=== PATIENT | female | born 1970 | race Caucasian/White ===

== ENCOUNTER 2018-06-09 08:09 | Emergency (ER) | payer OTHER, MEDICAID, SELFPAY ==
[2018-06-09 08:15] VITALS: BP 132/84; PULSE 75; RESP 15; TEMP 36.6; O2SAT 100; BMI 26.6
--- NOTE | 2018-06-09 09:06 | PC.NURSE ---
After meeting with the doctor, patient walked out of the department.
--- NOTE | 2018-06-09 09:11 | PC.NURSE ---
Patient left AMA; Patient left without signing any paperwork.
--- NOTE | 2018-06-09 09:15 | ED_ITS ---
HPI - Neck Pain/Injury General Chief Complaint: Neck Pain/Injury Stated Complaint: 'MY NECK' Time Seen by Provider: 06/09/18 08:13 History of Present Illness HPI Narrative: HPI 47 y/o female smoker w/ a recent history of a left achilles tendon rupture s/p repair 3 months ago presents for evaluation / management of ongoing neck pain, mild bilateral medial nerve paresthesias, and intermittent gradual onset headaches that have been present since starting crutch use post-operatively. Patient reports that she would like to have an MRI and possible surgery to address her ongoing neck pain. Patient reports frustration that she was cleared for a desk job by her surgeon and that this has caused her the possibility of $200 per month from [facility]. 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 Continues to be able to perform job duties, continues to be able to take care of her ADLs, lives alone in fifth wheel trailer. Patient unable to cite an event that led to today's presentation other than being tired of her discomfort. Patient is taking ibuprofen for pain control. Patient denies neck manipulation, trauma, fevers, changes in vision or hearing, calf pain, history of DVT or PE. Patient scratches are appropriately adjusted and they are not impacting her armpits. M/S/F/SocHx notable for: please see HPI; remainder reviewed with patient and in chart. ROS: Negative constitutional, eye, cardiovascular, pulmonary, GI, , MSK, skin , neurologic, psychiatric, endocrine unless noted in the HPI. Exam HR 75, BP 132/84, RR 15, T 97.8 ?F, SaO2 100 % on room air; at 8:15 am. Gen: Pleasant, non-toxic appearing, resting comfortably. HEENT: NC, AT, PEERL, EOMI. Resp: Clear to auscultation bilaterally, normal work of breathing, no accessory muscle usage. Card: Regular rate and rhythm with no murmurs, rubs, or gallops, extremities warm and well perfused. GI: Non-tender to palpation throughout all quadrants, no focal tenderness at McBurney's point, negative Kinsey's sign, non-distended, no rebound or guarding. : No suprapubic tenderness to palpation. Vascular: both calves of equal size and nontender to palpation bilaterally. Patient able comfortably crutch around the room without discernible discomfort. MSK: No visible deformities, strength and tone without visually appreciable deficit. Both hands warm and well perfused with 2+ radial pulses. C-spine without tenderness to palpation, neck with global mild reduction in range of motion in all modalities secondary to mild discomfort. Skin: Normal color with no visible lesions. Neuro: Gen AO x 3, no facial asymmetry, no gaze preference, no slurring of speech. CN II-III: pupils equal and reactive (3->2mm bilaterally); III, IV, : EOMI, V1-V3: sensation to touch bilaterally intact; VII: no facial asymmetry ( frown / smile); VIII: no nystagmus; X: phonation intact, uvula midline; XI: trapezius 5/5 bilaterally, XII: tongue midline. Cerebellar: no pronator drift, [id number] testing without dysmetria bilaterally, heel to levy without dysmetria bilaterally. Sensation intact to touch on all fingers, 5/5 mass spec strength bilaterally. Psych: mildly anxious, intermittently tearful. MDM Previous chart, nursing note, labs, imaging, and vitals reviewed. A/P: 47 y/o female smoker w/ a recent history of a left achilles tendon rupture s/p repair 3 months ago presents for evaluation / management of ongoing neck pain, mild bilateral medial nerve paresthesias, and intermittent gradual onset headaches that have been present since starting crutch use post-operatively. Physical exam is notable for a tearful female that is neurovascularly intact, has no identifiable high-risk features with respect to her headache, and remains able comfortably complete her ADLs as well as to perform work duties. The patient may benefit from a change of scope of work due to her need to use crutches. Social work consultation was offered and the patient declined and crutched from the department eloping prior to completion of care. The patient was alert, oriented, had clear insight, and had unequivocal capacity prior to eloping from the emergency department. Suspect the patient's intermittent posterior headaches are tension type headaches given the provocation with crutch use. Patient has mild gradual onset bilateral paresthesias predominantly over median nerve distribution, this is likely secondary to her crutch use. Impression: headache, median nerve paresthesias, AMA, asymptomatic hypertension (please reference below for remainder of encounter information) Related Data Allergies Allergy/AdvReac Type Severity Reaction Status Date / Time No Known Allergies Allergy Uncoded 06/09/18 08:15 [facility] Social History Smoking Status: Current every day smoker Exam Initial Vital Signs Initial Vital Signs: Vital Signs Temperature 97.8 F 06/09/18 08:15 Pulse Rate 75 06/09/18 08:15 Respiratory Rate 15 06/09/18 08:15 Blood Pressure 132/84 H 06/09/18 08:15 Pulse Oximetry 100 06/09/18 08:15 Course Vital Signs - 8 hr 06/09/18 08:15 Temperature 97.8 F Pulse Rate 75 Respiratory Rate 15 Blood Pressure 132/84 H Pulse Oximetry 100 Discharge Plan Departure Patient Disposition: Left Against Medical Advice Discharge Date/Time: 06/09/18 08:45 Interventions: ED Discharge Assessment Last Done: 06/09/18 09:11 Stand Alone Forms: Against Medical Advice
== END 2018-06-09 08:46 | disposition left against medical advice (07) ==
PROVIDERS: Emergency Provider Emergency Medicine
DX: R51 Headache (principal); I10 Essential (primary) hypertension
CPT/HCPCS: 99282

== ENCOUNTER 2018-12-23 15:58 | Emergency (ER) | payer SELFPAY ==
[2018-12-23 15:58] VITALS: BP 130/85; PULSE 84; RESP 18; TEMP 35.9; O2SAT 96; BMI 27.4
--- NOTE | 2018-12-23 16:22 | ED_ITS ---
HPI - Alcohol General Chief Complaint: Toxicology Problem Stated Complaint: ETOH Time Seen by Provider: 12/23/18 16:22 Source: patient and EMS Mode of arrival: EMS Limitations: no limitations History of Present Illness HPI narrative: Patient is a 48-year-old female brought in by EMS after they were called by an unknown individual because the patient was at [address] [facility]. Unsure as to why she was there. The patient did state that she drank alcohol and smoked some marijuana. She stated that she just wanted to go to the beach. Apparently she was crawling at the beach. She does have chronic left lower extremity pain secondary to which she states was a Achilles tendon injury. She does have a walking boot and also a scooter. Patient denied suicidal homicidal ideation. She does live with her sister who is not currently in town. She states that she felt lonely at home and that is why she went to the beach. Related Data Allergies Allergy/AdvReac Type Severity Reaction Status Date / Time No Known Allergies Allergy Uncoded 06/09/18 08:15 Review of Systems Constitutional Denies fever(s) and Denies headache(s) ENT Ears, Nose, Mouth, and Throat: Denies vertigo and Denies headache(s) Cardiovascular Denies chest pain and Denies dyspnea Respiratory Denies dyspnea Gastrointestinal Gastrointestinal: Denies abdominal pain Musculoskeletal Comments: Left lower extremity pain Integumentary/Breasts Denies rash Neurologic Denies confusion, Denies vertigo and Denies headache(s) Psychiatric Denies confusion, Reports depression, Denies irritability, Denies homicidal ideation and Denies suicidal ideation Hematologic/Lymphatic Comments: Not on anticoagulation [facility] Medical History Chronic pain of left lower extremity (Acute) Social History Smoking Status: Current every day smoker Social History Smoking Status: Current every day smoker Exam Initial Vital Signs Initial Vital Signs: Vital Signs Temperature 96.6 F L 12/23/18 15:58 Pulse Rate 84 12/23/18 15:58 Respiratory Rate 18 12/23/18 15:58 Blood Pressure 130/85 12/23/18 15:58 Pulse Oximetry 96 12/23/18 15:58 Const General: cooperative, comfortable, well developed, well groomed and No acute distress Orientation: alert, awake, oriented x3, oriented to person, oriented to place, oriented to time and not confused Limitations: mental status not altered HENND Head: normal to inspection and normocephalic Resp Effort & Inspection: normal respiratory effort Auscultation: clear to auscultation bilaterally Cardio Rate: regular rate Rhythm: regular rhythm GI Inspection: non-distended Palpation: soft, No firm and No tender Skin Lesions: no lesions Rashes: no rashes Neuro General: alert, awake and oriented x3 Cognition: normal cognition Speech: speech normal Other: Patient with tenderness to palpation left lower extremity. She states this is not new. Extrem Other: Limited range of motion left ankle secondary to pain Psych Appearance: grossly normal and disheveled Mood: congruent mood and not anxious Affect: sad Attitude: cooperative Thought Process: normal Thought Content: normal, no homicidality and suicidality Course Vital Signs - 8 hr 12/23/18 15:58 Temperature 96.6 F L Pulse Rate 84 Respiratory Rate 18 Blood Pressure 130/85 Pulse Oximetry 96 MDM - Alcohol MDM Narrative Medical decision making narrative: Patient did admit to drinking alcohol and smoking marijuana. She was alert and oriented x3 and in my opinion had the capacity to make decisions. She has left lower extremity pain which is chronic. There is no signs of infection. She was able to get up and use the restroom without assistance. Patient denied SI or HI. There is no signs of trauma. Was observing the patient here in the emergency department when she stated that she wanted to go home. I informed her because she stated that she was drinking that she needed to call someone to come and pick her up. She states that there was no one to come pick her up. We offered to call her cab which she did not want. I do not think the patient needs involuntarily admitted because she denied any SI or HI. I did inform patient that it would be best if somebody came and picked her up. Informed her that she could not drive because of her alcohol use. The patient eloped. Discharge Plan Departure Patient Disposition: Left Against Medical Advice Clinical Impression: Alcoholic intoxication, Left leg pain Stand Alone Forms: Against Medical Advice
--- NOTE | 2018-12-23 17:44 | PC.NURSE ---
Pt yelling in room 13 bathroom. I responded. Pt screaming at me F*CK YOU! YOU CAN'T KEEP ME HERE! I'M NOT SUICIDAL. I asked her to cam down, she screamed NO. I told patient that she could call a friend to pick her up or we would call her a cab. She screamed NO - Call the police!!!. Police called to assist patient. Pt went back to her stretcher. I went to discuss w/ Dr. Bales and pt eloped out ambulance bay doors. Dr. Bales denied need to have PD pick her up and return her. Police then came to ED requesting fit for senior care as pt had felony warrant and was being arrested. Dr. Bales evaluating.
--- NOTE | 2018-12-23 18:11 | PC.NURSE ---
Pt in police custody. Pt cleared fit for retirement. Pt refused to sign d/c instructions.
== END 2018-12-23 18:14 | disposition left against medical advice (07) ==
LOC: ED 18:18
PROVIDERS: Emergency Provider Emergency Medicine
DX: F10.929 Alcohol use, unspecified with intoxication, unspecified (principal); M79.605 Pain in left leg
CPT/HCPCS: 99282

== ENCOUNTER 2020-10-23 21:48 | Emergency (ER) | payer OTHER, MEDICAID, SELFPAY ==
[2020-10-23 22:00] VITALS: BP 158/97; PULSE 78; RESP 26; TEMP 36.7; O2SAT 97
--- NOTE | 2020-10-23 22:11 | ED_ITS ---
HPI - Skin/Abscess/Foreign Bdy General Chief complaint: Skin/Abscess/Foreign Body Stated complaint: states thistles in hand Time Seen by Provider: 10/23/20 22:11 Source: patient Mode of arrival: Ambulatory Limitations: no limitations History of Present Illness HPI narrative: 50-year-old female here for which she states are Thistles in her hands and arms and in her head. She states that several weeks ago she was h andling a plan that had thistles and she states that they got into her blood stream and now they are coming out through her arms and her head. Related Data Previous Rx's Medication Instructions Recorded handicap placard #1 ea 04/12/19 left ankle brace #1 ea 06/01/19 Allergies Allergy/AdvReac Type Severity Reaction Status Date / Time No Known Allergies Allergy Uncoded 10/23/20 22:04 Review of Systems Constitutional Constitutional: Denies fever(s) Musculoskeletal Musculoskeletal: Denies myalgias Integumentary/Breasts Comments: Thistle coming out of her skin Allergic/Immunologic Allergic/Immunologic: Denies urticaria Patient History Medical History (Updated 10/23/20 @ 22:12 by Omer Bales DO) Chronic pain of left lower extremity Social History Smoking Status: Current every day smoker Tobacco: How many years used: 30 quit status: not considering quitting second hand exposure: No alcohol intake: current (Beer or shot, 2-3x/week) substance use type: marijuana (smoke,edibles. daily) Smoking Status: Current every day smoker tobacco type: cigarettes Substance Use Type: marijuana Exam Initial Vital Signs Initial Vital Signs: Vital Signs Temperature 98.1 F 10/23/20 22:00 Pulse Rate 78 10/23/20 22:00 Respiratory Rate 26 H 10/23/20 22:00 Blood Pressure 158/97 H 10/23/20 22:00 Pulse Oximetry 97 10/23/20 22:00 Const General: cooperative Skin Rashes: no rashes Other: no thistles noted on his skin or her hair Neuro General: patient alert Course Vital Signs Vital signs: Vital Signs - 8 hr 10/23/20 22:00 Temperature 98.1 F Pulse Rate 78 Respiratory Rate 26 H Blood Pressure 158/97 H Pulse Oximetry 97 MDM - Skin/Abscess/Foreign Bdy MDM Narrative Medical decision making narrative: She does have several different healing wounds throughout her bony however there seems to be no indication that there are bugs or pieces of plants coming from her skin her scalp. Informed the patient that nothing further needs to be done in the emergency department. Discharge Plan Departure Patient Disposition: Home Clinical Impression: Physically well but worried Activity Restrictions/Additional Instructions: Return to the emergency department for any new or worsening symptoms Prescriptions: No Action (DME) left ankle brace Qty: 1 RF: 0 (DME) handicap placard Qty: 1 RF: 0 Referrals: Matt Avila ARNP [Primary Care Provider] -
--- NOTE | 2020-10-23 22:14 | PC.NURSE ---
small red bumps x2 on forehead. 1-2 small red bumps on hands. Hands are not reddened or swollen.
== END 2020-10-23 22:17 | disposition home or self-care (01) ==
PROVIDERS: Emergency Provider Emergency Medicine; PCP Nurse Practitioner Family
DX: L08.9 Local infection of the skin and subcutaneous tissue, unspecified (principal)
CPT/HCPCS: 99281

== ENCOUNTER 2020-12-07 14:25 | Emergency (ER) | payer OTHER, MEDICAID, SELFPAY ==
[2020-12-07 15:02] VITALS: BP 147/88; PULSE 76; RESP 16; TEMP 36.5; O2SAT 99; BMI 22.3
[2020-12-07 16:13] VITALS: BP 146/84; PULSE 79; RESP 20; TEMP 36.4; O2SAT 99
--- NOTE | 2020-12-07 17:14 | PC.NURSE ---
patient reports having Little balls in her hair and states you cant see them only feel them. She says they pull on her hair and she can not get rid of them. Patient hair is unwashed and her general appearance is disheveled. No little balls were palpated or visualized in her hair. The patient directed me to the spots and stated do you feel that?. No balls felt
--- NOTE | 2020-12-07 17:32 | ED_ITS ---
HPI - Skin/Abscess/Foreign Bdy General Chief complaint: Skin/Abscess/Foreign Body Stated complaint: Poss parasite infection Time Seen by Provider: 12/07/20 17:32 Source: patient Mode of arrival: Ambulatory Limitations: no limitations History of Present Illness HPI narrative: The patient is a 50-year-old female who presents with parasites all over her body. She states that they are microscopic and neck cannot be s een. She says she had ?devils thumb a while ago and thinks she treated that but now thinks that she has underlying parasites. She denies any drug use. She denies any itching fever or chills. Related Data Previous Rx's Medication Instructions Recorded handicap placard #1 ea 04/12/19 left ankle brace #1 ea 06/01/19 Allergies Allergy/AdvReac Type Severity Reaction Status Date / Time No Known Allergies Allergy Uncoded 10/23/20 22:04 Review of Systems Review of Systems Narrative: GENERAL: Denies chills,fever HEENT: Denies throat pain RESPIRATORY: Denies dyspnea, cough, wheezing CARDIOVASCULAR: Denies chest pain, palpitations GASTROINTESTINAL: Denies nausea, vomiting MUSCULOSKELETAL: Denies extremity pain, injury SKIN: See HPI NEUROLOGIC: Denies weakness, dizziness, headache, numbness 8 point review of systems is negative except for those stated above and HPI Patient History Medical History Chronic pain of left lower extremity Social History Smoking Status: Current every day smoker Tobacco: How many years used: 30 quit status: not considering quitting second hand exposure: No alcohol intake: current (Beer or shot, 2-3x/week) substance use type: marijuana (smoke,edibles. daily) Smoking Status: Current every day smoker tobacco type: cigarettes Substance Use Type: marijuana Exam Initial Vital Signs Initial Vital Signs: Vital Signs Temperature 97.7 F 12/07/20 15:02 Pulse Rate 76 12/07/20 15:02 Respiratory Rate 16 12/07/20 15:02 Blood Pressure 147/88 H 12/07/20 15:02 Pulse Oximetry 99 12/07/20 15:02 GENERAL: Well-appearing, well-nourished and in no acute distress. CARDIOVASCULAR: peripheral pulses in tact, cap refill <2 sec RESPIRATORY: No respiratory distress, speaks in full sentences without difficulty ABDOMEN: Soft, nontender, no guarding or rebound EXTREMITIES: Normal range of motion, no clubbing or edema. Neurovascularly intact NEUROLOGICAL: Cranial nerves II through XII grossly intact. Normal gait and speech. SKIN: No rash no erythema no abscess, no burrowing holes Course Vital Signs Vital signs: Vital Signs - 8 hr 12/07/20 15:02 12/07/20 16:13 12/07/20 17:45 Temperature 97.7 F 97.6 F Pulse Rate 76 79 75 Respiratory Rate 16 20 14 Blood Pressure 147/88 H 146/84 H 118/87 Pulse Oximetry 99 99 75 L Discharge Plan Departure Patient Disposition: Home Clinical Impression: Feared complaint without diagnosis Instructions: DI for Wound Infection Activity Restrictions/Additional Instructions: *You have been diagnosed with at this time no parasite is found *What to do: There is no testing available for parasite. If you are experiencing itching I recommend Benadryl *Continue to take medications as directed Benadryl 25 mg every 6 hours if needed for itching *Follow up with your primary care provider in 2-3 days *Return to ER if you should have any new, worsening or concerning symptoms Prescriptions: No Action (DME) left ankle brace Qty: 1 RF: 0 (DME) handicap placard Qty: 1 RF: 0 Referrals: Matt Avila ARNP [Primary Care Provider] -
[2020-12-07 17:45] VITALS: BP 118/87; PULSE 75; RESP 14; O2SAT 75
== END 2020-12-07 17:46 | disposition home or self-care (01) ==
PROVIDERS: Emergency Provider Emergency Medicine; PCP Nurse Practitioner Family
DX: R21 Rash and other nonspecific skin eruption (principal)
CPT/HCPCS: 99281

== ENCOUNTER 2020-12-23 11:46 | Emergency (ER) | payer OTHER, MEDICAID, SELFPAY ==
[2020-12-23 12:30] VITALS: BP 137/93; PULSE 71; RESP 18; TEMP 37; O2SAT 98; BMI 24.0
--- NOTE | 2020-12-23 12:49 | PC.NURSE ---
one attempt to room patient, can not find patient in any of the three waiting areas
--- NOTE | 2020-12-23 13:11 | PC.NURSE ---
1310 unable to locate pt in [place] or surrounding areas
== END 2020-12-23 13:21 | disposition left against medical advice (07) ==
PROVIDERS: Emergency Provider Emergency Medicine; PCP Nurse Practitioner Family
CPT/HCPCS: 99281

== ENCOUNTER 2020-12-28 09:32 | Emergency (ER) | payer OTHER, MEDICAID, SELFPAY ==
[2020-12-28 09:41] VITALS: BP 136/84; PULSE 83; RESP 18; TEMP 36.8; O2SAT 100; BMI 24.0
--- NOTE | 2020-12-28 09:47 | ED.GENADULT ---
HPI - General Adult General Chief complaint: Extremity Injury, Upper Stated complaint: both shoulders/elbows/right foot pain Time Seen by Provider: 12/28/20 09:37 Source: patient Mode of arrival: Wheelchair Limitations: no limitations History of Present Illness HPI narrative: Patient is a 50-year-old female who is sent over from the walk-in clinic for evaluation of multiple complaints to include pain in both of her shoulders, her elbows, right foot, parasites or other bugs coming from her scan another complaints. Patient states that all of the symptoms have been there for quite some time. She states she lives in a trailer. Has not seen her primary doctor in a couple years. Denies use of drugs but does state she drinks alcohol. She states that she has been cleaning somebody's house and has been very dirty and she is concerned that she may have contracted something from this. She has not tried anything for symptoms prior to arrival. She has not contacted her primary provider. Related Data Previous Rx's Medication Instructions Recorded handicap placard #1 ea 04/12/19 left ankle brace #1 ea 06/01/19 Allergies Allergy/AdvReac Type Severity Reaction Status Date / Time No Known Allergies Allergy Uncoded 10/23/20 22:04 Review of Systems Constitutional Constitutional: Reports fatigue, Denies fever(s) and Reports malaise Cardiovascular Cardiovascular: Denies chest pain and Denies dyspnea Respiratory Respiratory: Denies dyspnea Gastrointestinal Gastrointestinal: Denies vomiting Musculoskeletal Musculoskeletal: Reports arthralgias, Reports back pain and Reports myalgias Integumentary/Breasts Comments: Feeling of bugs coming from her skin Neurologic Neurologic: Reports behavioral changes Psychiatric Psychiatric: Reports behavioral changes Endocrine Endocrine: Reports fatigue Allergic/Immunologic Allergic/Immunologic: Denies urticaria Patient History Medical History Alcohol abuse Chronic pain of left lower extremity Social History Smoking Status: Current every day smoker Tobacco: How many years used: 30 quit status: not considering quitting second hand exposure: No alcohol intake: current (Beer or shot, 2-3x/week) substance use type: marijuana (smoke,edibles. daily) Smoking Status: Current every day smoker tobacco type: cigarettes alcohol intake frequency: 0-2 drinks per day Substance Use Type: marijuana Exam Initial Vital Signs Initial Vital Signs: Vital Signs Temperature 98.3 F 12/28/20 09:41 Pulse Rate 83 12/28/20 09:41 Respiratory Rate 18 12/28/20 09:41 Blood Pressure 136/84 12/28/20 09:41 Pulse Oximetry 100 12/28/20 09:41 Const General: No cooperative, anxious and disheveled Limitations: mental status not altered HENMT Head: other (Patient does have hair loss to the back of her head) Resp Effort & Inspection: normal respiratory effort Auscultation: clear to auscultation bilaterally Cardio Rate: regular rate Rhythm: regular rhythm GI Inspection: non-distended Palpation: soft Skin Other: Multiple well-healed wounds mostly located on hands and forearms Neuro General: patient alert and patient awake Speech: speech normal Gait: normal gait Extrem General: capillary refill normal Psych Appearance: disheveled Course Vital Signs Vital signs: Vital Signs - 8 hr 12/28/20 09:41 Temperature 98.3 F Pulse Rate 83 Respiratory Rate 18 Blood Pressure 136/84 Pulse Oximetry 100 Medical Decision Making [facility] Narrative Medical decision making narrative: Patient is disheveled and has multiple complaints. She has not seen her primary doctor. She is concerned about parasites her other bugs coming out of her skin which there does not appear to be any of that here in the emergency department today. I tried to provide her reassurance for this. She asked for a ?skin test ?be sure however I informed her that there was nothing for us to test as there were no signs of any infestation/infections. She was concerned about skin infections in her lower extremities because she has had cellulitis in the past in her exam today is not consistent with that. She does have thinning hair especially on the back of her head. She states she has not been pulling on her hair. She denied the use of drugs but does state that she has been drinking alcohol. I informed her that we could check some basic labs here today to be sure that her electrolytes are normal however informed her that she most likely will need to follow-up with her primary provider. She attest why we could not do the things at her primary provider could do here in the emergency department. I informed her that unfortunately we were not set up to do things like consultations or other specialist referrals if she were to need something like this. She then became extremely agitated and stated that she just wanted to leave. We tried to convince her to stay however she changed of her gown and walked out of the emergency department without her discharge paperwork. Discharge Plan Departure Patient Disposition: Home Clinical Impression: Arthritis, Malaise Instructions: DI for Joint Pain Activity Restrictions/Additional Instructions: Your physical exam today is not consistent with any emergent condition. I recommend that you abstain from the use of drugs or alcohol as this could potentially make her symptoms worse. I also recommend that you contact your primary provider for a follow-up. Their phone numbers [phone]. Prescriptions: No Action (DME) left ankle brace Qty: 1 RF: 0 (DME) handicap placard Qty: 1 RF: 0 Referrals: Matt Avila ARNP [Primary Care Provider] -
--- NOTE | 2020-12-28 09:52 | PC.NURSE ---
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 I need you guys to crape my skin and test it under a microscope Patient is concerned things are crawling in her skin, reports joint pain in elbows, neck and back aching, hair loss. Patient has mild swelling noted to lateral aspect of right foot with +1 edema noted to lower leg. CMS intact. Upon examination of patients back she was tender to palpation of trapezius bilaterally. Patient does have significant hair loss noted to back of scalp. Provider offered to do blood work patient refused I am leaving no one will help me Attempted to explain to patient benefits of lab work, explained in depth parasite testing and skin testing is not something we can do from ER.
--- NOTE | 2021-01-03 13:50 | ED.PSYCH ---
HPI - Psych General Chief Complaint: Extremity Injury, Upper Stated Complaint: both shoulders/elbows/right foot pain Time Seen by Provider: 12/28/20 09:37 Source: patient and EMS Mode of arrival: EMS Limitations: no limitations History of Present Illness HPI Narrative: 50-year-old female daily smoker without chronic medical problems presents by EMS for evaluation of parasites crawling around in the skin of her scalp and feet. She states it has been happening for many weeks if not months. She states she has been seen for this complaint previously without any significant findings. She denies that she takes any alcohol or street drugs. She denies any underlying and chronic diagnoses that would require medications. She has had no recent head injuries or trauma. She denies any blurred vision or trouble speech. She denies chest pain or shortness of breath. She does admit to all over joint aches and pains. She denies suicidal or homicidal ideation. She lives at home and states she is able to eat, drink and bathe herself. MD complaint: other Onset (ago): week(s) Related Data Previous Rx's Medication Instructions Recorded handicap placard #1 ea 04/12/19 left ankle brace #1 ea 06/01/19 Allergies Allergy/AdvReac Type Severity Reaction Status Date / Time No Known Allergies Allergy Uncoded 01/03/21 13:55 Review of Systems Neurologic Neurologic: Reports behavioral changes Psychiatric Psychiatric: Reports behavioral changes Patient History Medical History Alcohol abuse Chronic pain of left lower extremity Social History Smoking Status: Current every day smoker Tobacco: How many years used: 30 quit status: not considering quitting second hand exposure: No alcohol intake: current (Beer or shot, 2-3x/week) substance use type: marijuana (smoke,edibles. daily) Smoking Status: Current every day smoker tobacco type: cigarettes alcohol intake frequency: 0-2 drinks per day Substance Use Type: marijuana Exam Initial Vital Signs Initial Vital Signs: Vital Signs Temperature 98.3 F 12/28/20 09:41 Pulse Rate 83 12/28/20 09:41 Respiratory Rate 18 12/28/20 09:41 Blood Pressure 136/84 12/28/20 09:41 Pulse Oximetry 100 12/28/20 09:41 Course Orders Ordered: ED Orders 01/03/21 13:52 Complete Blood Count AUTO DIFF Stat Comprehensive Metabolic Panel Stat Ethanol (ETOH) Stat Thyroid Stimulating Hormone Stat Urine Drug Screen, Rapid Stat 01/03/21 13:53 CT head/brain wo con Stat Discharge Plan Departure Patient Disposition: Home Clinical Impression: Arthritis, Malaise Instructions: DI for Joint Pain Activity Restrictions/Additional Instructions: Your physical exam today is not consistent with any emergent condition. I recommend that you abstain from the use of drugs or alcohol as this could potentially make her symptoms worse. I also recommend that you contact your primary provider for a follow-up. Their phone numbers [phone]. Prescriptions: No Action (DME) left ankle brace Qty: 1 RF: 0 (DME) handicap placard Qty: 1 RF: 0 Referrals: Matt Avila ARNP [Primary Care Provider] -
--- NOTE | 2021-01-03 13:53 | DI.CT.S_ITS ---
PROCEDURE: CT HEAD/BRAIN WO CON INDICATIONS: visual hallucinations TECHNIQUE: Noncontrast 4.5 mm thick angled axial sections acquired from the foramen magnum to the vertex, with coronal and sagittal reformats. For radiation dose reduction, the following was used: automated exposure control, adjustment of mA and/or kV according to patient size. COMPARISON: [facility], CT, CT HEAD WITHOUT CONTRAST, 01/29/2018, 23:14. [facility], CT, HEAD WITHOUT CONTRAST, 09/02/2009, 19:55. FINDINGS: Image quality: Excellent. CSF spaces: Basal cisterns are patent. No extra-axial fluid collections. Ventricles are normal in size and shape. Brain: No midline shift. No intracranial masses or hemorrhage. Aleman-white matter interface is normal. Skull and face: Calvarium and visualized facial bones are intact, without suspicious lesions. Sinuses: Mucosal thickening is seen in the bilateral ethmoid air cells and nasal cavity is. The remaining visualized paranasal sinuses and the mastoid air cells are clear. IMPRESSION: No acute intracranial abnormality. Dictated by: Tigre Trevizo M.D. on 01/03/2021 at 14:11 Approved by: Tigre Trevizo M.D. on 01/03/2021 at 14:13
== END 2020-12-28 10:00 | disposition home or self-care (01) ==
PROVIDERS: Emergency Provider Emergency Medicine; PCP Nurse Practitioner Family
DX: M19.90 Unspecified osteoarthritis, unspecified site (principal); M53.81 Other specified dorsopathies, occipito-atlanto-axial region; M25.512 Pain in left shoulder; M25.511 Pain in right shoulder; M25.522 Pain in left elbow; M25.521 Pain in right elbow; M79.671 Pain in right foot; R53.83 Other fatigue; M54.9 Dorsalgia, unspecified
CPT/HCPCS: 99281

== ENCOUNTER 2021-01-03 13:48 | Emergency (ER) | payer OTHER, MEDICAID, SELFPAY ==
[2021-01-03 13:51] VITALS: BP 165/116; PULSE 70; RESP 20; TEMP 36.6; O2SAT 98; BMI 24.0
--- NOTE | 2021-01-03 14:03 | ED.SKABFB ---
HPI - Skin/Abscess/Foreign Bdy General Chief complaint: Skin/Abscess/Foreign Body Stated complaint: bugs all over body Time Seen by Provider: 01/03/21 13:50 Source: patient Mode of arrival: EMS Limitations: no limitations History of Present Illness HPI narrative: 50-year-old female daily smoker without chronic medical problems presents by EMS for evaluation of parasites crawling around in the skin of her scalp and feet. She states it has been happening for many weeks if not months. She states she has been seen for this complaint previously without any significant findings. She denies that she takes any alcohol or street drugs. She denies any underlying and chronic diagnoses that would require medications. She has had no recent head injuries or trauma. She denies any blurred vision or trouble speech. She denies chest pain or shortness of breath. She does admit to all over joint aches and pains. She denies suicidal or homicidal ideation. She lives at home and states she is able to eat, drink and bathe herself. MD complaint: other Onset (ago): week(s) Tetanus up to date: unsure Location: generalized Severity: mild Quality: pruritic Relieving factors: none Exacerbating factors: none Context: none Associated symptoms: itching Related Data Previous Rx's Medication Instructions Recorded handicap placard #1 ea 04/12/19 left ankle brace #1 ea 06/01/19 permethrin 1 applic TOPICAL Q14D #60 g 01/03/21 Allergies Allergy/AdvReac Type Severity Reaction Status Date / Time No Known Allergies Allergy Uncoded 01/03/21 13:55 Review of Systems Constitutional Constitutional: Denies chills, Denies fatigue, Denies fever(s), Denies frequent falls, Denies lethargy and Denies weakness Eyes Eyes: Denies change in vision, Denies eye discharge, Denies irritation and Denies loss of vision ENT Ears, Nose, Mouth, and Throat: Denies change in voice, Denies dizziness, Denies neck pain, Denies sore throat and Denies throat swelling Cardiovascular Cardiovascular: Denies chest pain, Denies irregular heart rhythm, Denies lightheadedness, Denies palpitations, Denies dyspnea, Denies dyspnea on exertion and Denies orthopnea Respiratory Respiratory: Denies cough, Denies dyspnea, Denies dyspnea on exertion and Denies wheezing Gastrointestinal Gastrointestinal: Denies abdominal pain, Denies change in bowel habits, Denies diarrhea, Denies nausea and Denies vomiting Musculoskeletal Musculoskeletal: Denies neck pain and Denies numbness Integumentary/Breasts Skin/Breast: Reports pruritus, Reports lesions, Denies erythema, Denies rash and Denies wounds Neurologic Neurologic: Denies behavioral changes, Denies confusion, Denies dizziness, Denies frequent falls, Denies loss of vision, Denies numbness and Denies weakness Psychiatric Psychiatric: Denies anxiety, Denies behavioral changes, Denies confusion, Denies depression, Denies homicidal ideation and Denies suicidal ideation Endocrine Endocrine: Denies fatigue, Denies flushing and Denies palpitations Hematologic/Lymphatic Hematologic/Lymphatic: Denies easy bruising Allergic/Immunologic Allergic/Immunologic: Denies urticaria, Denies throat swelling and Denies wheezing Patient History Medical History Alcohol abuse Chronic pain of left lower extremity Social History Smoking Status: Current every day smoker Tobacco: How many years used: 30 quit status: not considering quitting second hand exposure: No alcohol intake: current (Beer or shot, 2-3x/week) substance use type: marijuana (smoke,edibles. daily) Smoking Status: Current every day smoker tobacco type: cigarettes alcohol intake frequency: 0-2 drinks per day Substance Use Type: marijuana Exam Narrative Exam Narrative: GENERAL: [50] year old patient appears stated age. Well-nourished, well-developed patient, in mild distress. A bit disheveled, alert and oriented. GCS 15 HEAD: Atraumatic. Normocephalic. Mildly erythematous, scaly skin just below her hairline on occiput, no evidence of abscess, cellulitis or parasites EYES: Pupils equal round and reactive. Extraocular motions intact. No scleral icterus. No injection or drainage. ENT: Nose without bleeding, purulent drainage. Throat without erythema, tonsillar hypertrophy or exudate. Airway patent. NECK: Trachea midline. Non tender CARDIOVASCULAR: Regular rate and rhythm without murmurs, gallops, or rubs. RESPIRATORY: Clear to auscultation. Breath sounds equal bilaterally. No wheezes, rales, or rhonchi. GASTROINTESTINAL: Abdomen soft, non-tender, nondistended. EXTREMITIES: No edema or joint tenderness. BACK: Nontender without deformity or crepitance. No flank tenderness. NEURO: AOx3. SKIN: No rash or erythema of visible areas Initial Vital Signs Initial Vital Signs: Vital Signs Temperature 97.8 F 01/03/21 13:51 Pulse Rate 70 01/03/21 13:51 Respiratory Rate 20 01/03/21 13:51 Blood Pressure 165/116 H 01/03/21 13:51 Pulse Oximetry 98 01/03/21 13:51 Course Orders Ordered: ED Orders 01/03/21 14:27 Complete Blood Count AUTO DIFF Stat Comprehensive Metabolic Panel Stat Ethanol (ETOH) Stat Thyroid Stimulating Hormone Stat 01/03/21 14:42 Urine Drug Screen, Rapid Stat Vital Signs Vital signs: Vital Signs - 8 hr 01/03/21 13:51 01/03/21 14:25 Temperature 97.8 F Pulse Rate 70 84 Respiratory Rate 20 15 Blood Pressure 165/116 H 148/94 H Pulse Oximetry 98 MDM - Skin/Abscess/Foreign Bdy Lab Data Result diagrams: 01/03/21 14:27 01/03/21 14:27 Labs: Lab Results 01/03/21 01/03/21 01/03/21 Range/Units 14:27 14:27 14:27 WBC 5.6 (4.5-11.0) X10^3/uL RBC 4.72 (4.0-5.2) X10^6/uL Hgb 12.8 (12.0-16.0) g/dL Hct 39.2 (36-46) % MCV 83.1 (80-100) fL MCH 27.1 (26-34) PG MCHC 32.6 (30-36) % RDW 14.2 (11.6-14.8) % Plt Count 372 (150-400) X10^3/uL Neut % (Auto) 61.8 (50-75) % Lymph % (Auto) 28.7 (25-40) % [place] % (Auto) 8.2 (3-14) % Eos % (Auto) 0.8 L (2-4) % Baso % (Auto) 0.5 (0-2) % Neut # (Auto) 3500 (3022-0755) /uL Lymph # (Auto) 1600 (9779-1539) /uL [place] # (Auto) 500 (0-900) /uL Eos # (Auto) 0 (0-450) /uL Baso # (Auto) 0 (0-100) /uL Sodium 142 (137-145) mmol/L Potassium 4.2 (3.4-5.1) mmol/L Chloride 104 (98-107) mmol/L Carbon Dioxide 30 (22-32) mmol/L BUN 15 (7-17) mg/dL Creatinine 0.60 (0.52-1.04) mg/dL Estimated GFR > 60.0 (>60) mL/min BUN/Creatinine Ratio 25.0 H (6-22) Glucose 81 (70-100) mg/dL Calcium 9.1 (8.4-10.2) mg/dL Total Bilirubin 0.3 (0.2-1.3) mg/dL AST 37 H (14-36) IU/L ALT 28 (<35) IU/L Alkaline Phosphatase 64 (38-126) U/L Total Protein 7.7 (6.3-8.2) g/dL Albumin 4.4 (3.5-5.0) g/dL Globulin 3.3 (1.7-4.1) g/dL Albumin/Globulin Ratio 1.3 (1.0-2.8) TSH 1.81 (0.47-4.68) uIU/mL U Opiates 300ng/mL cut (Negative) Ur Oxycodone Screen (Negative) Urine Methadone Screen (Negative) Ur Barbiturates Screen (Negative) U Tricyclic Antidepress (Negative) Ur Phencyclidine Scrn (Negative) Ur Amphetamines Screen (Negative) U Methamphetamines Scrn (Negative) Ur MDMA Scrn (Ecstasy) (Negative) U Benzodiazepines Scrn (Negative) Urine Cocaine Screen (Negative) U Marijuana (THC) Screen (Negative) Ethyl Alcohol 100 H ( - 10) mg/dL 01/03/21 Range/Units 14:54 WBC (4.5-11.0) X10^3/uL RBC (4.0-5.2) X10^6/uL Hgb (12.0-16.0) g/dL Hct (36-46) % MCV (80-100) fL MCH (26-34) PG MCHC (30-36) % RDW (11.6-14.8) % Plt Count (150-400) X10^3/uL Neut % (Auto) (50-75) % Lymph % (Auto) (25-40) % [place] % (Auto) (3-14) % Eos % (Auto) (2-4) % Baso % (Auto) (0-2) % Neut # (Auto) (8519-1388) /uL Lymph # (Auto) (8329-1575) /uL [place] # (Auto) (0-900) /uL Eos # (Auto) (0-450) /uL Baso # (Auto) (0-100) /uL Sodium (137-145) mmol/L Potassium (3.4-5.1) mmol/L Chloride (98-107) mmol/L Carbon Dioxide (22-32) mmol/L BUN (7-17) mg/dL Creatinine (0.52-1.04) mg/dL Estimated GFR (>60) mL/min BUN/Creatinine Ratio (6-22) Glucose (70-100) mg/dL Calcium (8.4-10.2) mg/dL Total Bilirubin (0.2-1.3) mg/dL AST (14-36) IU/L ALT (<35) IU/L Alkaline Phosphatase (38-126) U/L Total Protein (6.3-8.2) g/dL Albumin (3.5-5.0) g/dL Globulin (1.7-4.1) g/dL Albumin/Globulin Ratio (1.0-2.8) TSH (0.47-4.68) uIU/mL U Opiates 300ng/mL cut Negative (Negative) Ur Oxycodone Screen Negative (Negative) Urine Methadone Screen Negative (Negative) Ur Barbiturates Screen Negative (Negative) U Tricyclic Antidepress Negative (Negative) Ur Phencyclidine Scrn Negative (Negative) Ur Amphetamines Screen Positive H (Negative) U Methamphetamines Scrn Positive H (Negative) Ur MDMA Scrn (Ecstasy) Negative (Negative) U Benzodiazepines Scrn Negative (Negative) Urine Cocaine Screen Negative (Negative) U Marijuana (THC) Screen Positive H (Negative) Ethyl Alcohol ( - 10) mg/dL Urine Dip Bedside Urine Glucose Negative Bedside Urine Bilirubin - Negative Bedside Urine Ketone - Negative Urine Specific Volin 1.020 Bedside Urine Occult Blood - Negative Bedside Urine pH 6.5 Bedside Urine Protein - Negative Bedside Urine Urobilinogen - Negative Bedside Urine Nitrite - Negative Imaging Data CT scan - head: Radiologist's Impression: [address] [id number] Scan ReportSigned Patient: Christiana Flores AMR#: [id number]: 1970Acct:[id number]/Sex: 50 / FDate of Service: 01/03/21Loc: EDAccession Number: [id number] Procedure: CT head/brain wo con Ordering Provider: Duke Bender D.O. PROCEDURE: CT HEAD/BRAIN WO CON INDICATIONS: visual hallucinations TECHNIQUE: Noncontrast 4.5 mm thick angled axial sections acquired from the foramen magnum to the vertex, with coronal and sagittal reformats. For radiation dose reduction, the following was used: automated exposure control, adjustment of mA and/or kV according to patient size. COMPARISON: [facility], CT, CT HEAD WITHOUT CONTRAST, 01/29/2018, 23:14. [facility], CT, HEAD WITHOUT CONTRAST, 09/02/2009, 19:55. FINDINGS: Image quality: Excellent. CSF spaces: Basal cisterns are patent. No extra-axial fluid collections. Ventricles are normal in size and shape. Brain: No midline shift. No intracranial masses or hemorrhage. Aleman-white matter interface is normal. Skull and face: Calvarium and visualized facial bones are intact, without suspicious lesions. Sinuses: Mucosal thickening is seen in the bilateral ethmoid air cells and nasal cavity is. The remaining visualized paranasal sinuses and the mastoid air cells are clear. IMPRESSION: No acute intracranial abnormality. Dictated by: Tigre Trevizo M.D. on 01/03/2021 at 14:11 Approved by: Tigre Trevizo M.D. on 01/03/2021 at 14:13 [facility] Narrative Medical decision making narrative: Patient concern for parasites, no evidence on exam to suggest this. There is some excoriation at base of scalp on occiput and one spot on posterior left shoulder. Rx for permethrin to be safe. Patient likely has a psych component, but is not SI/HI nor gravely disabled. She is given return precautions and has questions answered to her apparent satisfaction Discharge Plan Departure Patient Disposition: Home Clinical Impression: Feared complaint without diagnosis, Generalized pruritus Activity Restrictions/Additional Instructions: *You have been diagnosed with [concern for possible parasitic infection. Your exam is very reassuring as is your blood work and CT scan.] *What to do: *Take medications as directed: Prescription sent to [facility] *Follow up with your primary care provider in 2-3 days, call for an appointment. Let them know you were seen in the Emergency Department and that we ask that you be seen in follow up *Return to ER if you should have any new, worsening or concerning symptoms Prescriptions: New permethrin 5 % cream 1 applic topical Q14D Qty: 60 RF: 0 No Action (DME) left ankle brace Qty: 1 RF: 0 (DME) handicap placard Qty: 1 RF: 0 Referrals: Matt Avila ARNP [Primary Care Provider] -
[2021-01-03 14:25] VITALS: BP 148/94; PULSE 84; RESP 15
[2021-01-03 14:51] LABS: Add Manual Diff / Slide Review NO; Basophils Absolute Auto 0 /uL (0-100); Basophils Percent Auto 0.5 % (0-2); Eosinophils Absolute Auto 0 /uL (0-450); Eosinophils Percent Auto 0.8 % (2-4); Hematocrit 39.2 % (36-46); Hemoglobin 12.8 g/dL (12.0-16.0); Lymphocytes Absolute Auto 1600 /uL (1100-4500); Lymphocytes Percent Auto 28.7 % (25-40); Mean Corpuscular HGB Conc 32.6 % (30-36); Mean Corpuscular Hemoglobin 27.1 PG (26-34); Mean Corpuscular Volume 83.1 fL (80-100); Monocytes Absolute Auto 500 /uL (0-900); Monocytes Percent Auto 8.2 % (3-14); Neutrophils Absolute Auto 3500 /uL (1500-7000); Neutrophils Percent Auto 61.8 % (50-75); Platelet Count 372 X10^3/uL (150-400); Red Blood Cell Count 4.72 X10^6/uL (4.0-5.2); Red Cell Distribution Width 14.2 % (11.6-14.8); White Blood Cell Count 5.6 X10^3/uL (4.5-11.0)
[2021-01-03 15:04] LABS: Alanine Aminotransferase 28 IU/L (<35); Albumin 4.4 g/dL (3.5-5.0); Albumin Globulin Ratio 1.3 (1.0-2.8); Alkaline Phosphatase 64 U/L (38-126); Aspartate Aminotransferase 37 IU/L (14-36); Bilirubin Total 0.3 mg/dL (0.2-1.3); Blood Urea Nitrogen 15 mg/dL (7-17); Calcium 9.1 mg/dL (8.4-10.2); Carbon Dioxide 30 mmol/L (22-32); Chloride 104 mmol/L (98-107); Estimated Glomerular Filt Rate > 60.0 mL/min (>60); Ethanol (ETOH) 100 mg/dL; Globulin 3.3 g/dL (1.7-4.1); Glucose 81 mg/dL (70-100); HEMOLYSIS 33 (0-50); Potassium 4.2 mmol/L (3.4-5.1); Sodium 142 mmol/L (137-145); Total Protein 7.7 g/dL (6.3-8.2)
[2021-01-03 15:51] LABS: Thyroid Stimulating Hormone 1.81 uIU/mL (0.47-4.68)
[2021-01-03 16:09] VITALS: BP 154/91; PULSE 91; RESP 20; O2SAT 96
[2021-01-03 16:20] LABS: UR Morphine/Opiate cutoff 300 Negative (Negative); Ur Creatinine Normal (Normal); Ur Specific Gravity Normal (Normal); Urine Amphetamines Positive (Negative); Urine Barbiturates Negative (Negative); Urine Benzodiazepines Negative (Negative); Urine Cocaine Negative (Negative); Urine MDMA Negative (Negative); Urine Methadone Negative (Negative); Urine Methamphetamines Positive (Negative); Urine Oxycodone Negative (Negative); Urine Phencyclidine Negative (Negative); Urine Tetrahydrocannabinol Positive (Negative); Urine Tricyclic Antidepressant Negative (Negative); Urine pH Normal (Normal)
[2021-01-03 16:25] VITALS: BP 151/91; PULSE 91; RESP 18; O2SAT 96
== END 2021-01-03 16:25 | disposition home or self-care (01) ==
PROVIDERS: Emergency Provider Emergency Medicine; PCP Nurse Practitioner Family
DX: L29.8 Other pruritus (principal); R44.1 Visual hallucinations; F15.10 Other stimulant abuse, uncomplicated; F12.90 Cannabis use, unspecified, uncomplicated
CPT/HCPCS: 70450; 80053; 80305; 80320; 81003; 84443; 85025; 99283

== ENCOUNTER 2021-05-30 19:32 | Emergency (ER) | payer OTHER, MEDICAID, SELFPAY ==
[2021-05-30 20:01] VITALS: BP 137/91; PULSE 68; RESP 14; TEMP 37.1; O2SAT 99; BMI 25.8
--- NOTE | 2021-05-30 20:44 | ED_ITS ---
HPI - Extremity Problem General Chief complaint: Extremity Problem,Nontraumatic Stated complaint: joint pain, wrist swelling Time Seen by Provider: 05/30/21 20:38 Source: patient Mode of arrival: Ambulatory Limitations: no limitations History of Present Illness HPI Narrative: Patient is a 50-year-old female here for evaluation of swelling in her right wrist. [facility] Initially she stated that the wrist is been swelling over the past couple days but then stated that she has been having problems with her right arm for more than a year now. There is no one specific injury that caused the discomfort. She also states that she has sores and bugs coming out of her skin not just on her arm but also on her upper abdomen. Related Data Home Medications Medication Instructions Recorded Confirmed No Known Home Medications 01/06/21 01/06/21 Allergies Allergy/AdvReac Type Severity Reaction Status Date / Time No Known Allergies Allergy Uncoded 01/06/21 15:32 Review of Systems Constitutional Constitutional: Denies fever(s) Musculoskeletal Musculoskeletal: Reports as per HPI Integumentary/Breasts Skin/Breast: Reports as per HPI Hematologic/Lymphatic On Anticoagulants: No Patient History Medical History Alcohol abuse Alopecia Chronic pain of left lower extremity Social History Smoking Status: Current every day smoker Tobacco: How many years used: 30 quit status: not considering quitting second hand exposure: No alcohol intake: current (Beer or shot, 2-3x/week) substance use type: marijuana (smoke,edibles. daily) Smoking Status: Current every day smoker tobacco type: cigarettes alcohol intake frequency: 0-2 drinks per day Substance Use Type: marijuana Exam Initial Vital Signs Initial Vital Signs: Vital Signs Temperature 98.8 F 05/30/21 20:01 Pulse Rate 68 05/30/21 20:01 Respiratory Rate 14 05/30/21 20:01 Blood Pressure 137/91 H 05/30/21 20:01 Pulse Oximetry 99 05/30/21 20:01 HENMT Head: normal to inspection and normocephalic Resp Effort & Inspection: normal respiratory effort Cardio Pulses: radial pulses present on the right Skin General: no rashes or lesions noted Extrem Other: Right shoulder and right elbow appear to be unremarkable. She does have some slight swelling on the dorsum of the right wrist compared to the left. She has full range of motion of the right wrist. She can pronate and supinate. Psych Appearance: grossly normal and well kempt Course Vital Signs Vital signs: Vital Signs - 8 hr 05/30/21 20:01 Temperature 98.8 F Pulse Rate 68 Respiratory Rate 14 Blood Pressure 137/91 H Pulse Oximetry 99 MDM - Extremity (Nontraumatic) MDM Narrative Medical decision making narrative: She is afebrile. Neurovascularly intact. I do not see any bugs on her skin. I tried to reassure her that everything appeared to be fine. She does have some mild swelling of the right wrist compared to the left. Given her exam of low suspicion for fracture. 0 provider with a Velcro wrist splint to use as needed. Will discharge home without further workup in the emergency department. Discharge Plan Departure Patient Disposition: Home Clinical Impression: Right wrist pain Instructions: DI for Wrist Pain Activity Restrictions/Additional Instructions: You can take Tylenol/ibuprofen for any discomfort. You can also ice your wrist. Use the wrist brace as needed. Contact your primary doctor for follow-up. If you do not have a primary doctor you can contact [phone]. This is the health human resources project manager in this individual can help you establish a primary doctor here in the area. Prescriptions: No Action No Known Home Medications RF: 0 Referrals: Matt Avila ARNP [Primary Care Provider] -
== END 2021-05-30 20:54 | disposition home or self-care (01) ==
PROVIDERS: Emergency Provider Emergency Medicine; PCP Nurse Practitioner Family
DX: M25.531 Pain in right wrist (principal); M25.431 Effusion, right wrist
CPT/HCPCS: 99281

== ENCOUNTER 2021-06-17 23:40 | Emergency (ER) | payer OTHER, MEDICAID, SELFPAY ==
[2021-06-17 23:45] VITALS: BP 143/92; PULSE 77; RESP 23; TEMP 36.5; O2SAT 96; BMI 25.7
[2021-06-18] VITALS (17 sets, daily range): BP systolic 107–140; BP diastolic 67–93; PULSE 44–79; RESP 19–39; O2SAT 80–100
--- NOTE | 2021-06-18 00:04 | DI.RAD.S_ITS ---
PROCEDURE: XR CHEST 1V INDICATIONS: chest pain TECHNIQUE: One view of the chest was acquired. COMPARISON: None. FINDINGS: Surgical changes and devices: Cervical spine fixation hardware. Lungs and pleura: Lungs are clear. No pleural effusions or pneumothorax. Mediastinum: Mediastinal contours appear normal. Heart size is normal. Bones and chest wall: No suspicious bony lesions. Overlying soft tissues appear unremarkable. IMPRESSION: No acute cardiopulmonary disease process. Dictated by: Anita Johns MD, PhD on 06/18/2021 at 8:53 Approved by: Anita Johns MD, PhD on 06/18/2021 at 8:53
[2021-06-18 00:12] LABS: Add Manual Diff / Slide Review NO; Basophils Absolute Auto 0 /uL (0-100); Basophils Percent Auto 0.8 % (0-2); Eosinophils Absolute Auto 100 /uL (0-450); Eosinophils Percent Auto 1.4 % (2-4); Hematocrit 39.8 % (36-46); Hemoglobin 12.8 g/dL (12.0-16.0); Lymphocytes Absolute Auto 1700 /uL (1100-4500); Lymphocytes Percent Auto 26.5 % (25-40); Mean Corpuscular HGB Conc 32.2 % (30-36); Mean Corpuscular Hemoglobin 26.3 PG (26-34); Mean Corpuscular Volume 81.5 fL (80-100); Monocytes Absolute Auto 600 /uL (0-900); Monocytes Percent Auto 8.6 % (3-14); Neutrophils Absolute Auto 4100 /uL (1500-7000); Neutrophils Percent Auto 62.7 % (50-75); Platelet Count 441 X10^3/uL (150-400); Red Blood Cell Count 4.88 X10^6/uL (4.0-5.2); Red Cell Distribution Width 14.7 % (11.6-14.8); White Blood Cell Count 6.5 X10^3/uL (4.5-11.0)
[2021-06-18 00:17] LABS: Alanine Aminotransferase 21 IU/L (<35); Albumin 4.5 g/dL (3.5-5.0); Albumin Globulin Ratio 1.3 (1.0-2.8); BUN Creatinine Ratio 26.3 (6-22); Bilirubin Total 0.7 mg/dL (0.2-1.3); Blood Urea Nitrogen 21 mg/dL (7-17); Calcium 9.8 mg/dL (8.4-10.2); Carbon Dioxide 23 mmol/L (22-32); Chloride 109 mmol/L (98-107); Creatine Kinase 120 U/L (30-135); Estimated Glomerular Filt Rate > 60.0 mL/min (>60); Globulin 3.5 g/dL (1.7-4.1); Glucose 95 mg/dL (70-100); Lipase 96 U/L (23-300); Sodium 141 mmol/L (137-145)
[2021-06-18 00:20] LABS: Potassium 4.8 mmol/L (3.4-5.1)
[2021-06-18 00:21] LABS: Aspartate Aminotransferase 41 IU/L (14-36)
[2021-06-18 00:22] LABS: Alkaline Phosphatase 70 U/L (38-126)
[2021-06-18 00:28] LABS: Troponin I < 0.012 ng/mL (0.01-0.034)
[2021-06-18 00:32] LABS: CKMB % Relative Index 2.9 % (1.5-5.0); Creatine Kinase MB 3.42 ng/mL (<2.37)
[2021-06-18 00:33] LABS: HEMOLYSIS 95 (0-50)
--- NOTE | 2021-06-18 01:21 | ED.CHESTPAIN ---
HPI - Chest Pain General Chief Complaint: Chest Pain Stated Complaint: states heart problem Time Seen by Provider: 06/18/21 01:20 Source: patient Mode of arrival: Ambulatory Limitations: no limitations Related Data Home Medications Medication Instructions Recorded Confirmed No Known Home Medications 01/06/21 01/06/21 Allergies Allergy/AdvReac Type Severity Reaction Status Date / Time No Known Allergies Allergy Uncoded 01/06/21 15:32 Patient History Medical History Alcohol abuse Alopecia Chronic pain of left lower extremity Social History Smoking Status: Current every day smoker Tobacco: How many years used: 30 quit status: not considering quitting second hand exposure: No alcohol intake: current (Beer or shot, 2-3x/week) substance use type: marijuana (smoke,edibles. daily) Smoking Status: Current every day smoker tobacco type: cigarettes alcohol intake frequency: 0-2 drinks per day Substance Use Type: marijuana Exam Initial Vital Signs Initial Vital Signs: Vital Signs Temperature 97.7 F 06/17/21 23:45 Pulse Rate 77 06/17/21 23:45 Respiratory Rate 23 06/17/21 23:45 Blood Pressure 143/92 H 06/17/21 23:45 Pulse Oximetry 96 06/17/21 23:45 Course Orders Ordered: ED Orders 06/18/21 00:00 Complete Blood Count AUTO DIFF Stat Comprehensive Metabolic Panel Stat Lipase Stat Troponin & CK Cardiac Panel Stat 06/18/21 00:04 XR chest 1V Stat EKG-12 Lead Stat Vital Signs Vital signs: Vital Signs - 8 hr 06/17/21 23:45 Temperature 97.7 F Pulse Rate 77 Respiratory Rate 23 Blood Pressure 143/92 H Pulse Oximetry 96 MDM - Chest Pain Lab Data Result diagrams: 06/18/21 00:00 06/18/21 00:00 Labs: Lab Results 06/18/21 06/18/21 Range/Units 00:00 00:00 WBC 6.5 (4.5-11.0) X10^3/uL RBC 4.88 (4.0-5.2) X10^6/uL Hgb 12.8 (12.0-16.0) g/dL Hct 39.8 (36-46) % MCV 81.5 (80-100) fL MCH 26.3 (26-34) PG MCHC 32.2 (30-36) % RDW 14.7 (11.6-14.8) % Plt Count 441 H (150-400) X10^3/uL Neut % (Auto) 62.7 (50-75) % Lymph % (Auto) 26.5 (25-40) % [place] % (Auto) 8.6 (3-14) % Eos % (Auto) 1.4 L (2-4) % Baso % (Auto) 0.8 (0-2) % Neut # (Auto) 4100 (2394-9068) /uL Lymph # (Auto) 1700 (8202-4755) /uL [place] # (Auto) 600 (0-900) /uL Eos # (Auto) 100 (0-450) /uL Baso # (Auto) 0 (0-100) /uL Sodium 141 (137-145) mmol/L Potassium 4.8 (3.4-5.1) mmol/L Chloride 109 H (98-107) mmol/L Carbon Dioxide 23 (22-32) mmol/L BUN 21 H (7-17) mg/dL Creatinine 0.80 (0.52-1.04) mg/dL Estimated GFR > 60.0 (>60) mL/min BUN/Creatinine Ratio 26.3 H (6-22) Glucose 95 (70-100) mg/dL Calcium 9.8 (8.4-10.2) mg/dL Total Bilirubin 0.7 (0.2-1.3) mg/dL AST 41 H (14-36) IU/L ALT 21 (<35) IU/L Alkaline Phosphatase 70 (38-126) U/L Total Creatine Kinase 120 (30-135) U/L CK-MB (CK-2) 3.42 H (<2.37) ng/mL CK-MB (CK-2) Rel Index 2.9 (1.5-5.0) % Troponin I < 0.012 (0.01-0.034) ng/mL Total Protein 8.0 (6.3-8.2) g/dL Albumin 4.5 (3.5-5.0) g/dL Globulin 3.5 (1.7-4.1) g/dL Albumin/Globulin Ratio 1.3 (1.0-2.8) Lipase 96 (23-300) U/L Discharge Plan Departure Prescriptions: No Action No Known Home Medications RF: 0 Referrals: Matt Avila ARNP [Primary Care Provider] -
--- NOTE | 2021-06-18 01:32 | ED.GENADULT ---
HPI - General Adult <Tay Mcgowan MD - Last Filed: 06/20/21 12:21> General Chief complaint: Chest Pain Stated complaint: states heart problem Time Seen by Provider: 06/18/21 01:20 Source: patient Mode of arrival: Ambulatory Limitations: no limitations History of Present Illness HPI narrative: Patient here for multiple complaints. Chiefly, she complains of for the past year believing there are things crawling out of her skin. She is actively picking at her skin trying to show me things crawling out of her skin. There are none. Patient is followed by primary care, [place], and she states she has told her provider about it. Patient denies any psychiatric problems. Denies any meth use or amphetamine use or drug use. Patient also states what ever is growing inside of her is growing out. Is causing her body wide pain including the chest. EKG is normal sinus rhythm no injury pattern. Patient denies any heart problems. Patient states she walked here from home. She lives alone. No SI or HI. Denies any alcohol use tonight she states that chest pain is more painful with movement. More painful because she sees things crawling out of it. Related Data Home Medications Medication Instructions Recorded Confirmed No Known Home Medications 01/06/21 01/06/21 Allergies Allergy/AdvReac Type Severity Reaction Status Date / Time No Known Allergies Allergy Uncoded 01/06/21 15:32 Review of Systems <Tay Mcgowan MD - Last Filed: 06/20/21 12:21> Review of Systems Narrative: GENERAL: Denies chills, fatigue, malaise, fever, sweats. HEENT: Denies sinus pain, ear pain, sore throat RESPIRATORY: Denies dyspnea, cough CARDIOVASCULAR: Complaint chest pain, denies palpitations GASTROINTESTINAL: Denies nausea, vomiting, abdominal pain : Denies dysuria, frequency, hematuria MUSCULOSKELETAL: Complaint muscle or bony pain SKIN: Denies rash, skin lesions NEUROLOGIC: Denies weakness, numbness Psych patient tearful, anxious, has visual hallucinations, no SI or HI, no rapid speech. Firmly believes something is crawling out of her skin Patient History <Tay Mcgowan MD - Last Filed: 06/20/21 12:21> Medical History Alcohol abuse Alopecia Chronic pain of left lower extremity Social History Smoking Status: Current every day smoker Tobacco: How many years used: 30 quit status: not considering quitting second hand exposure: No alcohol intake: current (Beer or shot, 2-3x/week) substance use type: marijuana (smoke,edibles. daily) Smoking Status: Current every day smoker tobacco type: cigarettes alcohol intake frequency: 0-2 drinks per day Substance Use Type: marijuana Exam <Tay Mcgowan MD - Last Filed: 06/20/21 12:21> Narrative Exam Narrative: GENERAL: in no distress, not toxic not dyspneic HEAD: Normocephalic. EYES: Pupils equal round No scleral icterus. No injection no discharge ENT: Mucous membranes moist. NECK: Trachea midline. CARDIOVASCULAR: Regular rate and rhythm without murmurs, has chest pain with breathing and movement of her chest. RESPIRATORY: Clear to auscultation. Breath sounds equal bilaterally. No wheezes, rales, or rhonchi. GASTROINTESTINAL: Abdomen soft, non-tender EXTREMITIES: No gross deformities. BACK: No flank tenderness. NEURO: AOx4. SKIN: Warm and dry PSYCH: Not anxious, is cooperative Initial Vital Signs Initial Vital Signs: Vital Signs Temperature 97.7 F 06/17/21 23:45 Pulse Rate 77 06/17/21 23:45 Respiratory Rate 23 06/17/21 23:45 Blood Pressure 143/92 H 06/17/21 23:45 Pulse Oximetry 96 06/17/21 23:45 <Duke Bender DO - Last Filed: 06/18/21 10:57> Initial Vital Signs Initial Vital Signs: Vital Signs Temperature 97.7 F 06/17/21 23:45 Pulse Rate 77 06/17/21 23:45 Respiratory Rate 23 06/17/21 23:45 Blood Pressure 143/92 H 06/17/21 23:45 Pulse Oximetry 96 06/17/21 23:45 Course <Tay Mcgowan MD - Last Filed: 06/20/21 12:21> Orders Ordered: ED Orders 06/18/21 00:00 Complete Blood Count AUTO DIFF Stat Comprehensive Metabolic Panel Stat Ethanol (ETOH) Stat Lipase Stat Thyroid Stimulating Hormone Stat Troponin & CK Cardiac Panel Stat 06/18/21 00:04 XR chest 1V Stat 06/18/21 01:31 Urine Drug Screen, Rapid Stat 06/18/21 01:38 Consult to [facility] - [employer] Stat 06/18/21 01:45 Ammonia (NH3) Stat Trop I [Troponin I] Stat Reevaluation(s) Reevaluation #1: 6:48 a.m.. Patient awoke after sleeping hours here. She does not want wait any further for any further testing or to speak with social Work. Important to stay. She states she will not. She would not wait for social science research assistant or desire any testing. Risk of heart attack worsening conditioning , permanent injury reviewed with her. She is awake alert oriented to self and event. she refuses to stay or further obv or admit or eval or testing Time: 06:49 Vital Signs Vital signs: Vital Signs - 8 hr 06/18/21 03:00 06/18/21 03:30 06/18/21 03:31 Pulse Rate 62 60 58 L Respiratory Rate 33 H 22 19 Blood Pressure 114/77 129/80 06/18/21 04:00 06/18/21 04:01 06/18/21 04:30 Pulse Rate 52 L 54 L 59 L Respiratory Rate 20 20 19 Blood Pressure 113/77 107/67 06/18/21 05:00 06/18/21 05:30 06/18/21 05:31 Pulse Rate 57 L 63 50 L Respiratory Rate 21 19 22 Blood Pressure 116/70 140/79 06/18/21 06:00 06/18/21 06:30 Pulse Rate 54 L 44 L Respiratory Rate 28 H 19 Blood Pressure 123/72 140/76 <Duke Bender, DO - Last Filed: 06/18/21 10:57> Orders Ordered: ED Orders 06/18/21 00:00 Complete Blood Count AUTO DIFF Stat Comprehensive Metabolic Panel Stat Ethanol (ETOH) Stat Lipase Stat Thyroid Stimulating Hormone Stat Troponin & CK Cardiac Panel Stat 06/18/21 00:04 XR chest 1V Stat 06/18/21 01:31 Urine Drug Screen, Rapid Stat 06/18/21 01:38 Consult to [facility] - Manager Data Warehouse Stat 06/18/21 01:45 Ammonia (NH3) Stat Trop I [Troponin I] Stat Vital Signs Vital signs: Vital Signs - 8 hr 06/18/21 03:00 06/18/21 03:30 06/18/21 03:31 Pulse Rate 62 60 58 L Respiratory Rate 33 H 22 19 Blood Pressure 114/77 129/80 06/18/21 04:00 06/18/21 04:01 06/18/21 04:30 Pulse Rate 52 L 54 L 59 L Respiratory Rate 20 20 19 Blood Pressure 113/77 107/67 06/18/21 05:00 06/18/21 05:30 06/18/21 05:31 Pulse Rate 57 L 63 50 L Respiratory Rate 21 19 22 Blood Pressure 116/70 140/79 06/18/21 06:00 06/18/21 06:30 Pulse Rate 54 L 44 L Respiratory Rate 28 H 19 Blood Pressure 123/72 140/76 Medical Decision Making <Tay Mcgowan MD - Last Filed: 06/20/21 12:21> Differential Diagnosis Differential Diagnosis: Psychosis/bipolar/substance abuse Lab Data Result diagrams: 06/18/21 00:00 06/18/21 00:00 Labs: Lab Results 06/18/21 06/18/21 06/18/21 Range/Units 00:00 00:00 00:00 WBC 6.5 (4.5-11.0) X10^3/uL RBC 4.88 (4.0-5.2) X10^6/uL Hgb 12.8 (12.0-16.0) g/dL Hct 39.8 (36-46) % MCV 81.5 (80-100) fL MCH 26.3 (26-34) PG MCHC 32.2 (30-36) % RDW 14.7 (11.6-14.8) % Plt Count 441 H (150-400) X10^3/uL Neut % (Auto) 62.7 (50-75) % Lymph % (Auto) 26.5 (25-40) % [place] % (Auto) 8.6 (3-14) % Eos % (Auto) 1.4 L (2-4) % Baso % (Auto) 0.8 (0-2) % Neut # (Auto) 4100 (8910-7099) /uL Lymph # (Auto) 1700 (3730-9497) /uL [place] # (Auto) 600 (0-900) /uL Eos # (Auto) 100 (0-450) /uL Baso # (Auto) 0 (0-100) /uL Sodium 141 (137-145) mmol/L Potassium 4.8 (3.4-5.1) mmol/L Chloride 109 H (98-107) mmol/L Carbon Dioxide 23 (22-32) mmol/L BUN 21 H (7-17) mg/dL Creatinine 0.80 (0.52-1.04) mg/dL Estimated GFR > 60.0 (>60) mL/min BUN/Creatinine Ratio 26.3 H (6-22) Glucose 95 (70-100) mg/dL Calcium 9.8 (8.4-10.2) mg/dL Total Bilirubin 0.7 (0.2-1.3) mg/dL AST 41 H (14-36) IU/L ALT 21 (<35) IU/L Alkaline Phosphatase 70 (38-126) U/L Ammonia (9-30) umol/L Total Creatine Kinase 120 (30-135) U/L CK-MB (CK-2) 3.42 H (<2.37) ng/mL CK-MB (CK-2) Rel Index 2.9 (1.5-5.0) % Troponin I < 0.012 (0.01-0.034) ng/mL Total Protein 8.0 (6.3-8.2) g/dL Albumin 4.5 (3.5-5.0) g/dL Globulin 3.5 (1.7-4.1) g/dL Albumin/Globulin Ratio 1.3 (1.0-2.8) Lipase 96 (23-300) U/L TSH 1.94 (0.47-4.68) uIU/mL Ethyl Alcohol ( - 10) mg/dL 06/18/21 06/18/21 06/18/21 Range/Units 00:00 01:45 01:45 WBC (4.5-11.0) X10^3/uL RBC (4.0-5.2) X10^6/uL Hgb (12.0-16.0) g/dL Hct (36-46) % MCV (80-100) fL MCH (26-34) PG MCHC (30-36) % RDW (11.6-14.8) % Plt Count (150-400) X10^3/uL Neut % (Auto) (50-75) % Lymph % (Auto) (25-40) % [place] % (Auto) (3-14) % Eos % (Auto) (2-4) % Baso % (Auto) (0-2) % Neut # (Auto) (0483-5640) /uL Lymph # (Auto) (7732-9076) /uL [place] # (Auto) (0-900) /uL Eos # (Auto) (0-450) /uL Baso # (Auto) (0-100) /uL Sodium (137-145) mmol/L Potassium (3.4-5.1) mmol/L Chloride (98-107) mmol/L Carbon Dioxide (22-32) mmol/L BUN (7-17) mg/dL Creatinine (0.52-1.04) mg/dL Estimated GFR (>60) mL/min BUN/Creatinine Ratio (6-22) Glucose (70-100) mg/dL Calcium (8.4-10.2) mg/dL Total Bilirubin (0.2-1.3) mg/dL AST (14-36) IU/L ALT (<35) IU/L Alkaline Phosphatase (38-126) U/L Ammonia < 9 L (9-30) umol/L Total Creatine Kinase (30-135) U/L CK-MB (CK-2) (<2.37) ng/mL CK-MB (CK-2) Rel Index (1.5-5.0) % Troponin I < 0.012 (0.01-0.034) ng/mL Total Protein (6.3-8.2) g/dL Albumin (3.5-5.0) g/dL Globulin (1.7-4.1) g/dL Albumin/Globulin Ratio (1.0-2.8) Lipase (23-300) U/L TSH (0.47-4.68) uIU/mL Ethyl Alcohol < 10 ( - 10) mg/dL Imaging Data Chest x-ray: Radiologist's Impression: Read by overnight radiologist no acute disease in the chest ECG Data Interpretation: Normal sinus rhythm normal EKG rate [address] elevation or depression <Duke Bender DO - Last Filed: 06/18/21 10:57> Lab Data Labs: Lab Results 06/18/21 06/18/21 06/18/21 Range/Units 00:00 00:00 00:00 WBC 6.5 (4.5-11.0) X10^3/uL RBC 4.88 (4.0-5.2) X10^6/uL Hgb 12.8 (12.0-16.0) g/dL Hct 39.8 (36-46) % MCV 81.5 (80-100) fL MCH 26.3 (26-34) PG MCHC 32.2 (30-36) % RDW 14.7 (11.6-14.8) % Plt Count 441 H (150-400) X10^3/uL Neut % (Auto) 62.7 (50-75) % Lymph % (Auto) 26.5 (25-40) % [place] % (Auto) 8.6 (3-14) % Eos % (Auto) 1.4 L (2-4) % Baso % (Auto) 0.8 (0-2) % Neut # (Auto) 4100 (0315-2289) /uL Lymph # (Auto) 1700 (8792-1106) /uL [place] # (Auto) 600 (0-900) /uL Eos # (Auto) 100 (0-450) /uL Baso # (Auto) 0 (0-100) /uL Sodium 141 (137-145) mmol/L Potassium 4.8 (3.4-5.1) mmol/L Chloride 109 H (98-107) mmol/L Carbon Dioxide 23 (22-32) mmol/L BUN 21 H (7-17) mg/dL Creatinine 0.80 (0.52-1.04) mg/dL Estimated GFR > 60.0 (>60) mL/min BUN/Creatinine Ratio 26.3 H (6-22) Glucose 95 (70-100) mg/dL Calcium 9.8 (8.4-10.2) mg/dL Total Bilirubin 0.7 (0.2-1.3) mg/dL AST 41 H (14-36) IU/L ALT 21 (<35) IU/L Alkaline Phosphatase 70 (38-126) U/L Ammonia (9-30) umol/L Total Creatine Kinase 120 (30-135) U/L CK-MB (CK-2) 3.42 H (<2.37) ng/mL CK-MB (CK-2) Rel Index 2.9 (1.5-5.0) % Troponin I < 0.012 (0.01-0.034) ng/mL Total Protein 8.0 (6.3-8.2) g/dL Albumin 4.5 (3.5-5.0) g/dL Globulin 3.5 (1.7-4.1) g/dL Albumin/Globulin Ratio 1.3 (1.0-2.8) Lipase 96 (23-300) U/L TSH 1.94 (0.47-4.68) uIU/mL Ethyl Alcohol ( - 10) mg/dL 06/18/21 06/18/21 06/18/21 Range/Units 00:00 01:45 01:45 WBC (4.5-11.0) X10^3/uL RBC (4.0-5.2) X10^6/uL Hgb (12.0-16.0) g/dL Hct (36-46) % MCV (80-100) fL MCH (26-34) PG MCHC (30-36) % RDW (11.6-14.8) % Plt Count (150-400) X10^3/uL Neut % (Auto) (50-75) % Lymph % (Auto) (25-40) % [place] % (Auto) (3-14) % Eos % (Auto) (2-4) % Baso % (Auto) (0-2) % Neut # (Auto) (8094-0097) /uL Lymph # (Auto) (6644-0077) /uL [place] # (Auto) (0-900) /uL Eos # (Auto) (0-450) /uL Baso # (Auto) (0-100) /uL Sodium (137-145) mmol/L Potassium (3.4-5.1) mmol/L Chloride (98-107) mmol/L Carbon Dioxide (22-32) mmol/L BUN (7-17) mg/dL Creatinine (0.52-1.04) mg/dL Estimated GFR (>60) mL/min BUN/Creatinine Ratio (6-22) Glucose (70-100) mg/dL Calcium (8.4-10.2) mg/dL Total Bilirubin (0.2-1.3) mg/dL AST (14-36) IU/L ALT (<35) IU/L Alkaline Phosphatase (38-126) U/L Ammonia < 9 L (9-30) umol/L Total Creatine Kinase (30-135) U/L CK-MB (CK-2) (<2.37) ng/mL CK-MB (CK-2) Rel Index (1.5-5.0) % Troponin I < 0.012 (0.01-0.034) ng/mL Total Protein (6.3-8.2) g/dL Albumin (3.5-5.0) g/dL Globulin (1.7-4.1) g/dL Albumin/Globulin Ratio (1.0-2.8) Lipase (23-300) U/L TSH (0.47-4.68) uIU/mL Ethyl Alcohol < 10 ( - 10) mg/dL MDM Narrative Medical decision making narrative: I did not see this patient, accidentally assigned Discharge Plan Departure Patient Disposition: Left Against Medical Advice Clinical Impression: Atypical chest pain Prescriptions: No Action No Known Home Medications RF: 0 Referrals: Matt Avila ARNP [Primary Care Provider] - Stand Alone Forms: Against Medical Advice
[2021-06-18 01:52] LABS: Ethanol (ETOH) < 10 mg/dL
[2021-06-18 02:15] LABS: Ammonia (NH3) < 9 umol/L (9-30)
[2021-06-18 02:23] LABS: Thyroid Stimulating Hormone 1.94 uIU/mL (0.47-4.68)
[2021-06-18 02:28] LABS: Troponin I < 0.012 ng/mL (0.01-0.034)
== END 2021-06-18 06:58 | disposition left against medical advice (07) ==
PROVIDERS: Emergency Provider Emergency Medicine; PCP Nurse Practitioner Family
DX: R07.89 Other chest pain (principal)
CPT/HCPCS: 36415; 71045; 80053; 80320; 82140; 82550; 82553; 83690; 84443; 84484; 85025; 93005; 99283

== ENCOUNTER 2021-06-26 09:49 | Emergency (ER) | payer OTHER, MEDICAID, SELFPAY ==
--- NOTE | 2021-06-26 09:55 | ED.GENADULT ---
HPI - General Adult General Chief complaint: Extremity Problem,Nontraumatic Stated complaint: 3 days of generalized pain Time Seen by Provider: 06/26/21 09:52 History of Present Illness HPI narrative: 50-year-old female smoker with history of chest pain, overall body pain presents by EMS with a chief complaint of 3 days of generalized body pain from head to toe. She denies any injury. She has not been sick and denies any fever, chills nor nausea or vomiting. She denies any numbness, tingling or weakness. She denies any new medications or dietary change. She states that of everything her right shoulder hurts the most, it hurts worse with motion and palpation and improves with rest. Related Data Previous Rx's Medication Instructions Recorded cephalexin 500 mg capsule 500 mg PO BID #10 cap 06/26/21 ketorolac 10 mg tablet 10 mg PO Q6H PRN #14 tab 06/26/21 Allergies Allergy/AdvReac Type Severity Reaction Status Date / Time No Known Drug Allergies Allergy Verified 06/26/21 09:57 Review of Systems Review of Systems Narrative: GENERAL: See HPI HEENT: Denies sinus pain, ear pain, sore throat, difficulty swallowing, dizziness. RESPIRATORY: Denies dyspnea, cough, wheezing, hemoptysis, sputum. CARDIOVASCULAR: Denies chest pain, palpitations, orthopnea, edema, GASTROINTESTINAL: Denies nausea, vomiting, abdominal pain, diarrhea, constipation, melena. : Denies dysuria, frequency, incontinence, hematuria, urinary retention. MUSCULOSKELETAL: denies weakness, joint pain, or bony pain SKIN: Denies rash, skin lesions, or other NEUROLOGIC: Denies weakness, headache, numbness, change in speech, confusion, seizures, incoordination. PSYCHIATRIC: No concerning psychosocial issues. 12 point review of systems is negative except for those stated above Patient History Medical History Alcohol abuse Alopecia Chronic pain of left lower extremity Social History Smoking Status: Current every day smoker Tobacco: How many years used: 30 quit status: not considering quitting second hand exposure: No alcohol intake: current (Beer or shot, 2-3x/week) substance use type: marijuana (smoke,edibles. daily) Smoking Status: Current every day smoker tobacco type: cigarettes alcohol intake frequency: 0-2 drinks per day Substance Use Type: marijuana Exam Narrative Exam Narrative: GENERAL: [50] year old patient appears stated age. Well-developed patient, in mild distress. Tearful, upset, appears in pain HEAD: Atraumatic. Normocephalic. EYES: Pupils equal round and reactive. Extraocular motions intact. No scleral icterus. No injection or drainage. ENT: Nose without bleeding, purulent drainage. Throat without erythema, tonsillar hypertrophy or exudate. Airway patent. NECK: Trachea midline. Non tender CARDIOVASCULAR: Regular rate and rhythm without murmurs, gallops, or rubs. RESPIRATORY: Clear to auscultation. Breath sounds equal bilaterally. No wheezes, rales, or rhonchi. GASTROINTESTINAL: Abdomen soft, non-tender, nondistended. EXTREMITIES: Right shoulder pain, worse with palpation and range of motion, no obvious deformity, BACK: Nontender without deformity or crepitance. No flank tenderness. NEURO: AOx3. SKIN: No rash or erythema of visible areas Initial Vital Signs Initial Vital Signs: Vital Signs Temperature 98.5 F 06/26/21 09:57 Pulse Rate 70 06/26/21 09:57 Respiratory Rate 17 06/26/21 09:57 Blood Pressure 118/87 06/26/21 09:57 Pulse Oximetry 98 06/26/21 09:57 Course Orders Ordered: ED Orders 06/26/21 10:54 Complete Blood Count AUTO DIFF Stat Comprehensive Metabolic Panel Stat 06/26/21 11:20 Urine Drug Screen, Rapid Stat Urine Microscopic Stat Vital Signs Vital signs: Vital Signs - 8 hr 06/26/21 11:29 06/26/21 11:30 Pulse Rate 61 60 Blood Pressure 122/73 Pulse Oximetry 100 99 Medical Decision Making Lab Data Result diagrams: 06/26/21 10:54 06/26/21 10:54 Labs: Lab Results 06/26/21 06/26/21 06/26/21 Range/Units 10:54 10:54 11:20 WBC 4.7 (4.5-11.0) X10^3/uL RBC 4.57 (4.0-5.2) X10^6/uL Hgb 12.1 (12.0-16.0) g/dL Hct 37.3 (36-46) % MCV 81.7 (80-100) fL MCH 26.5 (26-34) PG MCHC 32.4 (30-36) % RDW 14.4 (11.6-14.8) % Plt Count 365 (150-400) X10^3/uL Neut % (Auto) 68.6 (50-75) % Lymph % (Auto) 21.0 L (25-40) % [place] % (Auto) 8.9 (3-14) % Eos % (Auto) 1.0 L (2-4) % Baso % (Auto) 0.5 (0-2) % Neut # (Auto) 3200 (0627-9297) /uL Lymph # (Auto) 1000 L (3336-7771) /uL [place] # (Auto) 400 (0-900) /uL Eos # (Auto) 0 (0-450) /uL Baso # (Auto) 0 (0-100) /uL Sodium 141 (137-145) mmol/L Potassium 4.1 (3.4-5.1) mmol/L Chloride 108 H (98-107) mmol/L Carbon Dioxide 29 (22-32) mmol/L BUN 12 (7-17) mg/dL Creatinine 0.64 (0.52-1.04) mg/dL Estimated GFR > 60.0 (>60) mL/min BUN/Creatinine Ratio 18.8 (6-22) Glucose 104 H (70-100) mg/dL Calcium 9.4 (8.4-10.2) mg/dL Total Bilirubin 0.3 (0.2-1.3) mg/dL AST 30 (14-36) IU/L ALT 20 (<35) IU/L Alkaline Phosphatase 54 (38-126) U/L Total Protein 6.7 (6.3-8.2) g/dL Albumin 3.7 (3.5-5.0) g/dL Globulin 3.0 (1.7-4.1) g/dL Albumin/Globulin Ratio 1.2 (1.0-2.8) Urine RBC (0-5/HPF) Urine WBC (0-5/HPF) Ur Squamous Epith Cells (0-5/HPF) Urine Bacteria (None) Ur Culture Indicated? U Opiates 300ng/mL cut Positive H (Negative) Ur Oxycodone Screen Negative (Negative) Urine Methadone Screen Negative (Negative) Ur Barbiturates Screen Negative (Negative) U Tricyclic Antidepress Negative (Negative) Ur Phencyclidine Scrn Negative (Negative) Ur Amphetamines Screen Positive H (Negative) U Methamphetamines Scrn Positive H (Negative) Ur MDMA Scrn (Ecstasy) Negative (Negative) U Benzodiazepines Scrn Negative (Negative) Urine Cocaine Screen Negative (Negative) U Marijuana (THC) Screen Positive H (Negative) 06/26/21 Range/Units 11:20 WBC (4.5-11.0) X10^3/uL RBC (4.0-5.2) X10^6/uL Hgb (12.0-16.0) g/dL Hct (36-46) % MCV (80-100) fL MCH (26-34) PG MCHC (30-36) % RDW (11.6-14.8) % Plt Count (150-400) X10^3/uL Neut % (Auto) (50-75) % Lymph % (Auto) (25-40) % [place] % (Auto) (3-14) % Eos % (Auto) (2-4) % Baso % (Auto) (0-2) % Neut # (Auto) (1821-2938) /uL Lymph # (Auto) (1184-3553) /uL [place] # (Auto) (0-900) /uL Eos # (Auto) (0-450) /uL Baso # (Auto) (0-100) /uL Sodium (137-145) mmol/L Potassium (3.4-5.1) mmol/L Chloride (98-107) mmol/L Carbon Dioxide (22-32) mmol/L BUN (7-17) mg/dL Creatinine (0.52-1.04) mg/dL Estimated GFR (>60) mL/min BUN/Creatinine Ratio (6-22) Glucose (70-100) mg/dL Calcium (8.4-10.2) mg/dL Total Bilirubin (0.2-1.3) mg/dL AST (14-36) IU/L ALT (<35) IU/L Alkaline Phosphatase (38-126) U/L Total Protein (6.3-8.2) g/dL Albumin (3.5-5.0) g/dL Globulin (1.7-4.1) g/dL Albumin/Globulin Ratio (1.0-2.8) Urine RBC None seen (0-5/HPF) Urine WBC 5-10/hpf H (0-5/HPF) Ur Squamous Epith Cells 5-10 /hpf H (0-5/HPF) Urine Bacteria Many (>30) H (None) Ur Culture Indicated? Cult not indicated U Opiates 300ng/mL cut (Negative) Ur Oxycodone Screen (Negative) Urine Methadone Screen (Negative) Ur Barbiturates Screen (Negative) U Tricyclic Antidepress (Negative) Ur Phencyclidine Scrn (Negative) Ur Amphetamines Screen (Negative) U Methamphetamines Scrn (Negative) Ur MDMA Scrn (Ecstasy) (Negative) U Benzodiazepines Scrn (Negative) Urine Cocaine Screen (Negative) U Marijuana (THC) Screen (Negative) Urine Dip Bedside Urine Glucose Negative Bedside Urine Bilirubin - Negative Bedside Urine Ketone - Negative Urine Specific [place] 1.015 Bedside Urine Occult Blood - Negative Bedside Urine pH 7.0 Bedside Urine Protein - Negative Bedside Urine Urobilinogen - Negative Bedside Urine Nitrite + Positive Bedside Urine Leukocytes + 70 Esterase Point of care testing: Urine Dip Bedside Urine Glucose Negative Bedside Urine Bilirubin - Negative Bedside Urine Ketone - Negative Urine Specific [place] 1.015 Bedside Urine Occult Blood - Negative Bedside Urine pH 7.0 Bedside Urine Protein - Negative Bedside Urine Urobilinogen - Negative Bedside Urine Nitrite + Positive Bedside Urine Leukocytes + 70 Esterase Discharge Plan Departure Patient Disposition: Home Clinical Impression: UTI (urinary tract infection) Qualifiers: Urinary tract infection type: acute cystitis Hematuria presence: without hematuria Qualified Code(s): N30.00 - Acute cystitis without hematuria Instructions: DI for Urinary Tract Infection (UTI) Activity Restrictions/Additional Instructions: *You have been diagnosed with [body aches, urinary tract infection, polysubstance] *What to do: *Please continue to take your regular medications as directed. [x ] New medication prescriptions sent to your pharmacy: [ [facility]] [ ] New medication written as a paper prescription [ ] No new medications given *Please follow up with your primary care provider in 2-3 days, call for an appointment. Let them know you were seen in the Emergency Department and that we ask that you be seen in follow up. We will electronically transmit a record of today's note if your PCP is in our system *If you do not have a primary care provider please contact the [facility] Resource line at [phone]. They will ask some questions about your medical history and help get you set up with a doctor in the community. *Return to Emergency Department if you should have any new, worsening or concerning symptoms, such as [fever greater than 101 F, shaking chills, worsening pain, persistent vomiting or other bothersome symptoms] Prescriptions: New ketorolac 10 mg tablet 10 mg PO Q6H PRN (Reason: pain) Qty: 14 RF: 0 cephalexin 500 mg capsule 500 mg PO BID Qty: 10 RF: 0 Referrals: Matt Avila ARNP [Primary Care Provider] -
[2021-06-26 09:57] VITALS: BP 118/87; PULSE 70; RESP 17; TEMP 36.9; O2SAT 98; BMI 25.7
[2021-06-26 11:10] LABS: Add Manual Diff / Slide Review NO; Basophils Absolute Auto 0 /uL (0-100); Basophils Percent Auto 0.5 % (0-2); Eosinophils Absolute Auto 0 /uL (0-450); Hematocrit 37.3 % (36-46); Hemoglobin 12.1 g/dL (12.0-16.0); Lymphocytes Absolute Auto 1000 /uL (1100-4500); Mean Corpuscular HGB Conc 32.4 % (30-36); Mean Corpuscular Hemoglobin 26.5 PG (26-34); Mean Corpuscular Volume 81.7 fL (80-100); Monocytes Absolute Auto 400 /uL (0-900); Monocytes Percent Auto 8.9 % (3-14); Neutrophils Absolute Auto 3200 /uL (1500-7000); Neutrophils Percent Auto 68.6 % (50-75); Platelet Count 365 X10^3/uL (150-400); Red Blood Cell Count 4.57 X10^6/uL (4.0-5.2); Red Cell Distribution Width 14.4 % (11.6-14.8); White Blood Cell Count 4.7 X10^3/uL (4.5-11.0)
[2021-06-26 11:27] LABS: Alanine Aminotransferase 20 IU/L (<35); Albumin 3.7 g/dL (3.5-5.0); Albumin Globulin Ratio 1.2 (1.0-2.8); Alkaline Phosphatase 54 U/L (38-126); Aspartate Aminotransferase 30 IU/L (14-36); BUN Creatinine Ratio 18.8 (6-22); Bilirubin Total 0.3 mg/dL (0.2-1.3); Blood Urea Nitrogen 12 mg/dL (7-17); Calcium 9.4 mg/dL (8.4-10.2); Carbon Dioxide 29 mmol/L (22-32); Chloride 108 mmol/L (98-107); Estimated Glomerular Filt Rate > 60.0 mL/min (>60); Glucose 104 mg/dL (70-100); HEMOLYSIS < 15 (0-50); Potassium 4.1 mmol/L (3.4-5.1); Sodium 141 mmol/L (137-145); Total Protein 6.7 g/dL (6.3-8.2)
[2021-06-26 11:29] VITALS: PULSE 61; O2SAT 100
[2021-06-26 11:30] VITALS: BP 122/73; PULSE 60; O2SAT 99
[2021-06-26 11:33] LABS: RBC Urine None Seen (0-5/HPF)
[2021-06-26 11:37] LABS: Ur Creatinine Normal (Normal); Ur Specific Gravity Normal (Normal); Urine pH Normal (Normal)
[2021-06-26 11:38] LABS: UR Morphine/Opiate cutoff 300 Positive (Negative); Urine Amphetamines Positive (Negative); Urine Barbiturates Negative (Negative); Urine Benzodiazepines Negative (Negative); Urine Cocaine Negative (Negative); Urine MDMA Negative (Negative); Urine Methadone Negative (Negative); Urine Methamphetamines Positive (Negative); Urine Oxycodone Negative (Negative); Urine Phencyclidine Negative (Negative); Urine Tetrahydrocannabinol Positive (Negative); Urine Tricyclic Antidepressant Negative (Negative)
[2021-06-26 11:40] LABS: Bacteria Urine Many (>30); Culture Indicated Urine Cult Not Indicated; Squamous Epithelial Cell Urine 5-10 /HPF (0-5/HPF); WBC Urine 5-10/HPF (0-5/HPF)
== END 2021-06-26 12:08 | disposition home or self-care (01) ==
PROVIDERS: Emergency Provider Emergency Medicine; PCP Nurse Practitioner Family
DX: N30.00 Acute cystitis without hematuria (principal)
CPT/HCPCS: 36415; 80053; 80305; 81003; 81015; 85025; 99283

== ENCOUNTER 2021-07-05 14:04 | Emergency (ER) | payer OTHER, MEDICAID, SELFPAY ==
[2021-07-05 14:08] VITALS: BP 103/70; PULSE 108; RESP 16; TEMP 36.2; O2SAT 99; BMI 25.7
--- NOTE | 2021-07-05 14:11 | PC.NURSE ---
pt states I feel all the symptoms in me
== END 2021-07-05 14:15 | disposition left against medical advice (07) ==
LOC: ED 14:43
PROVIDERS: Emergency Provider Emergency Medicine; PCP Nurse Practitioner Family
DX: F99 Mental disorder, not otherwise specified (principal)
CPT/HCPCS: 99281

== ENCOUNTER → 2021-07-08 13:43 | Outpatient (CLI) | payer OTHER, MEDICAID, SELFPAY ==
[2021-07-08 14:30] LABS: COVID19 -Nasal RAPID Negative (Negative)
[2021-07-08 16:08] LABS: Bilirubin Urine UA NEGATIVE (NEGATIVE); Color Urine UA YELLOW; Glucose Urine UA NEGATIVE (Negative); Ketones Urine UA TRACE (NEGATIVE); Leukocyte Esterase Urine UA 1+ (NEGATIVE); Nitrite Urine UA NEGATIVE (Negative); Occult Blood Urine UA 1+ (Negative); Protein Urine UA TRACE (Negative); Specific Gravity Urine UA 1.025 (1.000-1.035); Urobilinogen Urine UA 0.2 E.U./dL (0.2)
[2021-07-08 16:11] LABS: Appearance Urine UA Slightly Cloudy
[2021-07-08 16:17] LABS: Amorphous Sediment Urine 1+; Bacteria Urine Many (>30); Culture Indicated Urine Specimen Cultured; Mucus Urine 1+ (Negative); RBC Urine 1-5/HPF (0-5/HPF); Squamous Epithelial Cell Urine 5-10 /HPF (0-5/HPF); WBC Urine 10-30/HPF (0-5/HPF)
== END ==
PROVIDERS: PCP Nurse Practitioner Family; Visit Provider Nurse Practitioner
DX: Z20.822 Contact with and (suspected) exposure to COVID-19 (principal); N39.0 Urinary tract infection, site not specified
CPT/HCPCS: 81001; 81002; 87077; 87086; 87186; 87635

== ENCOUNTER 2021-07-28 21:58 | Emergency (ER) | payer OTHER, MEDICAID, SELFPAY ==
[2021-07-28 22:20] VITALS: BP 166/111; PULSE 79; RESP 16; TEMP 36.5; O2SAT 100; BMI 25.7
[2021-07-28 23:11] VITALS: PULSE 69; RESP 16; TEMP 36.9; O2SAT 100
--- NOTE | 2021-07-28 23:20 | PC.NURSE ---
Pt states, I think I'm dying. I have yeast in my blood and parasites and a lump on my butt. Vital signs WNL. Intact skin noted to buttocks.
--- NOTE | 2021-07-29 00:01 | PC.NURSE ---
Pt is refusing to get up to bathroom to give urine sample. States, I hurt too much. I need IV antifungal medication. Pt educated regarding need for urine sample, still refusing.
[2021-07-29 00:54] LABS: Add Manual Diff / Slide Review NO; Basophils Absolute Auto 0 /uL (0-100); Basophils Percent Auto 0.5 % (0-2); Eosinophils Absolute Auto 100 /uL (0-450); Eosinophils Percent Auto 1.3 % (2-4); Hemoglobin 11.6 g/dL (12.0-16.0); Lymphocytes Absolute Auto 1200 /uL (1100-4500); Mean Corpuscular HGB Conc 32.3 % (30-36); Mean Corpuscular Hemoglobin 25.9 PG (26-34); Mean Corpuscular Volume 80.3 fL (80-100); Monocytes Absolute Auto 600 /uL (0-900); Monocytes Percent Auto 10.1 % (3-14); Neutrophils Absolute Auto 3900 /uL (1500-7000); Neutrophils Percent Auto 67.1 % (50-75); Platelet Count 342 X10^3/uL (150-400); Red Blood Cell Count 4.48 X10^6/uL (4.0-5.2); Red Cell Distribution Width 14.5 % (11.6-14.8); White Blood Cell Count 5.7 X10^3/uL (4.5-11.0)
[2021-07-29 01:07] LABS: BUN Creatinine Ratio 20.3 (6-22); Blood Urea Nitrogen 13 mg/dL (7-17); Calcium 9.5 mg/dL (8.4-10.2); Carbon Dioxide 27 mmol/L (22-32); Chloride 107 mmol/L (98-107); Estimated Glomerular Filt Rate > 60.0 mL/min (>60); Glucose 101 mg/dL (70-100); HEMOLYSIS < 15 (0-50); Potassium 3.5 mmol/L (3.4-5.1); Sodium 142 mmol/L (137-145)
--- NOTE | 2021-07-29 02:12 | ED_ITS ---
HPI - Recheck/Abnormal Lab/Rx General Chief Complaint: Recheck/Abnormal Lab/Rx Stated Complaint: yeast infection Time Seen by Provider: 07/28/21 23:47 Source: patient Mode of arrival: Ambulatory Limitations: no limitations History of Present Illness HPI narrative: This is a 50-year-old female who presents with concern for yeast infection throughout her entire body and in her blood and request for IV antifungals. Patient states she was diagnosed with a fungal infection recently. She was given 1 oral dose of fluconazole that it helped but did not fully treat her. It is noted she was diagnosed with a UTI in June. Her urine culture was positive for E coli and she was prescribed appropriate antibiotics at that time. Patient describes having generalized body discomfort, intermittent headaches. She denies chest pain or shortness of breath. No nausea or vomiting. She denies any diarrhea or constipation. She denies any urinary frequency dysuria sense of urgency. She denies any rashes or skin changes. Patient denies any other daily medications. No recent surgeries, she has had prior orthopedic carrion rgeries remotely. She states she does use tobacco, sure to daily drinks. She admits to marijuana but does not do heroin or methamphetamines although she did share this information with nursing staff. Patient denies any recent ingestion of methamphetamines. She denies any mental health disorders., no thoughts of depression. She does not admit to any other hallucinations auditory or visual. Related Data Previous Rx's Medication Instructions Recorded cephalexin 500 mg capsule 500 mg PO BID #10 cap 06/26/21 ketorolac 10 mg tablet 10 mg PO Q6H PRN #14 tab 06/26/21 fluconazole 150 mg tablet 150 mg PO ONCE #1 tab 07/08/21 (Diflucan) Allergies Allergy/AdvReac Type Severity Reaction Status Date / Time No Known Drug Allergies Allergy Verified 06/26/21 09:57 Review of Systems Review of Systems ROS Unobtainable: All systems reviewed & are unremarkable except as noted in HPI and below Patient History Medical History Alcohol abuse Alopecia Chronic pain of left lower extremity Social History Smoking Status: Current every day smoker Tobacco: How many years used: 30 quit status: not considering quitting second hand exposure: No alcohol intake: current (Beer or shot, 2-3x/week) substance use type: marijuana (smoke,edibles. daily) Smoking Status: Current every day smoker tobacco type: cigarettes alcohol intake frequency: 0-2 drinks per day Substance Use Type: marijuana, heroin and methamphetamine Exam Narrative Exam Narrative: GEN: well nourished, well appearing female, alert and oriented x 3, patient appears to be in mild distress. HEENT: Atraumatic, pupils are equal round reactive to light, extraocular movements are intact, nares are clear, TMs are clear with no fluid, there is no conjunctival pallor. Throat is clear without any exudates, erythema, tonsillar enlargement or uvular deviation HEART: Regular rate and rhythm without murmur, clicks, rubs. LUNGS:Lungs clear to auscultation, no wheezes, rales, crackles, chest moves symmetrically ABD:bowel sounds normal, soft, non-tender, no guarding, rebound, rigidity, no masses noted, no hepatosplenomegaly :No CVA tenderness MSCL: Non-tender, no muscle atrophy, muscles strength 5/5 upper and lower extremities, full range of motion, normal gait NEURO:CN 2-12 intact, sensation normal SKIN: Patient has no rash, patient does have areas consistent with skin picking on her extremities and face. PSYCH: Patient denies any depression, no of harming or others, denies any hallucinations. Patient is quite focused on her concerns for a yeast infection throughout her body. The patient returns this is distal surface of her symptoms are repeatedly. After noting her urine culture was positive for bacteria she states this was a false positive and that it was actually caused by a fungus. Initial Vital Signs Initial Vital Signs: Vital Signs Temperature 97.7 F 07/28/21 22:20 Pulse Rate 79 07/28/21 22:20 Respiratory Rate 16 07/28/21 22:20 Blood Pressure 166/111 H 07/28/21 22:20 Pulse Oximetry 100 07/28/21 22:20 Course Orders Ordered: ED Orders 07/29/21 00:35 Basic Metabolic Panel Stat Complete Blood Count AUTO DIFF Stat 07/29/21 00:42 Blood Culture Stat Vital Signs Vital signs: Vital Signs - 8 hr 07/28/21 22:20 07/28/21 23:11 07/29/21 03:52 Temperature 97.7 F 98.4 F Pulse Rate 79 69 78 Respiratory Rate 16 16 16 Blood Pressure 166/111 H 154/93 H Pulse Oximetry 100 100 98 MDM - Recheck/Abnormal Lab/Rx Lab Data Result diagrams: 07/29/21 00:35 07/29/21 00:35 Labs: Lab Results 07/29/21 07/29/21 Range/Units 00:35 00:35 WBC 5.7 (4.5-11.0) X10^3/uL RBC 4.48 (4.0-5.2) X10^6/uL Hgb 11.6 L (12.0-16.0) g/dL Hct 36.0 (36-46) % MCV 80.3 (80-100) fL MCH 25.9 L (26-34) PG MCHC 32.3 (30-36) % RDW 14.5 (11.6-14.8) % Plt Count 342 (150-400) X10^3/uL Neut % (Auto) 67.1 (50-75) % Lymph % (Auto) 21.0 L (25-40) % [place] % (Auto) 10.1 (3-14) % Eos % (Auto) 1.3 L (2-4) % Baso % (Auto) 0.5 (0-2) % Neut # (Auto) 3900 (9569-3712) /uL Lymph # (Auto) 1200 (8282-3114) /uL [place] # (Auto) 600 (0-900) /uL Eos # (Auto) 100 (0-450) /uL Baso # (Auto) 0 (0-100) /uL Sodium 142 (137-145) mmol/L Potassium 3.5 (3.4-5.1) mmol/L Chloride 107 (98-107) mmol/L Carbon Dioxide 27 (22-32) mmol/L BUN 13 (7-17) mg/dL Creatinine 0.64 (0.52-1.04) mg/dL Estimated GFR > 60.0 (>60) mL/min BUN/Creatinine Ratio 20.3 (6-22) Glucose 101 H (70-100) mg/dL Calcium 9.5 (8.4-10.2) mg/dL [facility] Narrative Medical decision making narrative: Patient comes with concern for yeast infection. Labs and findings today tightness support this concern at this time. Blood cultures were obtained. She did have a positive urine culture per patient she took antibiotics as well as a single fluconazole. She is requesting IV antifungal as. We discussed that unless there is a more specific reason to start this medication or if she had cultures that were concerning that move potentially start the medication but at this time I do not see any cause to. I did discuss if she felt she would benefit from talking with social Work. She was resistant to this idea. This does seem to be a somewhat fixed delusion. She has prior history of methamphetamine I suggest this is causing some of her symptoms. Unclear if there was a additional psychiatric component but at this time she does not seem to be gravely disabled. Patient discharged home. Discharge Plan Departure Patient Disposition: Home Clinical Impression: Feared complaint without diagnosis Activity Restrictions/Additional Instructions: Follow up for recheck. Your labs today show a mild anemia. No other major changes. Blood cultures were sent and we will contact you if positive. These take 48-72 hours to result. If you do not have a working phone number you can contact us on Tuesday to check on your culture results although I do not expect these to be positive. We also have a clinical social work therapist that you can speak with about some of your concerns if you are interested. You can typically speak with her by after 12 noon on . Please return for fevers, lightheadedness or passing out, chest pain or shortness of breath, persistent vomiting, black or bloody stools or other new or concerning symptoms. Prescriptions: No Action fluconazole [Diflucan] 150 mg tablet 150 mg PO ONCE Qty: 1 RF: 0 ketorolac 10 mg tablet 10 mg PO Q6H PRN (Reason: pain) Qty: 14 RF: 0 cephalexin 500 mg capsule 500 mg PO BID Qty: 10 RF: 0 Referrals: Matt Avila ARNP [Primary Care Provider] -
[2021-07-29 03:52] VITALS: BP 154/93; PULSE 78; RESP 16; O2SAT 98
== END 2021-07-29 03:30 | disposition home or self-care (01) ==
PROVIDERS: Emergency Provider Emergency Medicine; PCP Nurse Practitioner Family
DX: B37.9 Candidiasis, unspecified (principal)
CPT/HCPCS: 36415; 80048; 85025; 87040; 99283

== ENCOUNTER 2021-09-02 04:57 | Emergency (ER) | payer OTHER, MEDICAID, SELFPAY ==
[2021-09-02 05:05] VITALS: BP 163/103; PULSE 98; RESP 22; TEMP 36.6; O2SAT 100
--- NOTE | 2021-09-02 05:17 | ED_ITS ---
HPI - Anxiety <DO Henry Lepe Last Filed: 09/06/21 03:29> General Chief Complaint: Anxiety Stated Complaint: whole body hurts x2 days Time Seen by Provider: 09/02/21 05:10 Source: patient Mode of arrival: Ambulatory History of Present Illness HPI narrative: 51F smoker presents with the chief complaint of painful hair and body for days, or weeks, or months. Patient is tearful and scared and states nobody will help her. She is convinced something is wrong with her here and has cut most of it off. She denies any chest pain or shortness of breath. She denies any nausea, vomiting or diarrhea. She thinks things are crawling on her and nobody can see it or will believe her. She denies any trauma or injury. She denies the use of any street drugs. Related Data Previous Rx's Medication Instructions Recorded cephalexin 500 mg capsule 500 mg PO BID #10 cap 06/26/21 ketorolac 10 mg tablet 10 mg PO Q6H PRN #14 tab 06/26/21 fluconazole 150 mg tablet 150 mg PO ONCE #1 tab 07/08/21 (Diflucan) Allergies Allergy/AdvReac Type Severity Reaction Status Date / Time No Known Drug Allergies Allergy Verified 09/02/21 07:37 Review of Systems <DO Henry Lepe Last Filed: 09/06/21 03:29> Review of Systems Narrative: GENERAL: Denies chills, fatigue, malaise, fever, sweats. HEENT: Denies sinus pain, ear pain, sore throat, difficulty swallowing, dizziness. RESPIRATORY: Denies dyspnea, cough, wheezing, hemoptysis, sputum. CARDIOVASCULAR: Denies chest pain, palpitations, orthopnea, edema, GASTROINTESTINAL: Denies nausea, vomiting, abdominal pain, diarrhea, constipation, melena. : Denies dysuria, frequency, incontinence, hematuria, urinary retention. MUSCULOSKELETAL: denies weakness, joint pain, or bony pain SKIN: Denies rash, skin lesions, or other NEUROLOGIC: Denies weakness, headache, numbness, change in speech, confusion, seizures, incoordination. PSYCHIATRIC: see HPI 12 point review of systems is negative except for those stated above Patient History <DO Henry Lepe Last Filed: 09/06/21 03:29> Medical History Alcohol abuse Alopecia Chronic pain of left lower extremity Social History Smoking Status: Current every day smoker Tobacco: How many years used: 30 quit status: not considering quitting second hand exposure: No alcohol intake: current (Beer or shot, 2-3x/week) substance use type: marijuana (smoke,edibles. daily) Smoking Status: Current every day smoker alcohol intake frequency: a few times a week Substance Use Type: marijuana Exam <Duke Bender DO - Last Filed: 09/06/21 03:29> Narrative Exam Narrative: GENERAL: 51 year old patient appears stated age. She is clearly upset and shelled, crying, for speech and scratching at her hair HEAD: Atraumatic. Normocephalic. Hair has been cutoff, no erythema or swelling, no evidence of any infestation EYES: Pupils equal round and reactive. Extraocular motions intact. No scleral icterus. No injection or drainage. ENT: Nose without bleeding, purulent drainage. Throat without erythema, tonsillar hypertrophy or exudate. Airway patent. NECK: Trachea midline. Non tender CARDIOVASCULAR: Regular rate and rhythm without murmurs, gallops, or rubs. RESPIRATORY: Clear to auscultation. Breath sounds equal bilaterally. No wheezes, rales, or rhonchi. GASTROINTESTINAL: Abdomen soft, non-tender, nondistended. EXTREMITIES: No edema or joint tenderness. BACK: Nontender without deformity or crepitance. No flank tenderness. NEURO: AOx3. SKIN: No rash or erythema of visible areas Initial Vital Signs Initial Vital Signs: Vital Signs Temperature 98 F 09/02/21 05:05 Pulse Rate 98 H 09/02/21 05:05 Respiratory Rate 22 09/02/21 05:05 Blood Pressure 163/103 H 09/02/21 05:05 Pulse Oximetry 100 09/02/21 05:05 <Omer Bales DO - Last Filed: 09/02/21 10:32> Initial Vital Signs Initial Vital Signs: Vital Signs Temperature 98 F 09/02/21 05:05 Pulse Rate 98 H 09/02/21 05:05 Respiratory Rate 22 09/02/21 05:05 Blood Pressure 163/103 H 09/02/21 05:05 Pulse Oximetry 100 09/02/21 05:05 Course <Duke Bender DO - Last Filed: 09/06/21 03:29> Orders Ordered: Discontinued Medications Acetaminophen (Acetaminophen 325 Mg Tablet) 650 mg PO NOW ONE Stop: 09/02/21 08:30 Last Admin: 09/02/21 08:52 Dose: 650 mg Documented by: [email or web address] Vital Signs Vital signs: Vital Signs - 8 hr 09/02/21 05:05 Temperature 98 F Pulse Rate 98 H Respiratory Rate 22 Blood Pressure 163/103 H Pulse Oximetry 100 <Omer Bales DO - Last Filed: 09/02/21 10:32> Orders Ordered: Discontinued Medications Acetaminophen (Acetaminophen 325 Mg Tablet) 650 mg PO NOW ONE Stop: 09/02/21 08:30 Last Admin: 09/02/21 08:52 Dose: 650 mg Documented by: [email or web address] Vital Signs Vital signs: Vital Signs - 8 hr 09/02/21 05:05 Temperature 98 F Pulse Rate 98 H Respiratory Rate 22 Blood Pressure 163/103 H Pulse Oximetry 100 MDM - Anxiety <Duke Bender, DO - Last Filed: 09/06/21 03:29> Lab Data Result diagrams: 09/02/21 06:35 09/02/21 06:35 Labs: Lab Results 09/02/21 09/02/21 09/02/21 Range/Units 06:35 06:35 06:35 WBC 9.3 (4.5-11.0) X10^3/uL RBC 4.69 (4.0-5.2) X10^6/uL Hgb 12.3 (12.0-16.0) g/dL Hct 37.9 (36-46) % MCV 80.9 (80-100) fL MCH 26.2 (26-34) PG MCHC 32.4 (30-36) % RDW 14.1 (11.6-14.8) % Plt Count 382 (150-400) X10^3/uL Neut % (Auto) 75.5 H (50-75) % Lymph % (Auto) 15.3 L (25-40) % [place] % (Auto) 8.2 (3-14) % Eos % (Auto) 0.6 L (2-4) % Baso % (Auto) 0.4 (0-2) % Neut # (Auto) 7000 (7919-0905) /uL Lymph # (Auto) 1400 (8246-1169) /uL [place] # (Auto) 800 (0-900) /uL Eos # (Auto) 100 (0-450) /uL Baso # (Auto) 0 (0-100) /uL Sodium 140 (137-145) mmol/L Potassium 3.8 (3.4-5.1) mmol/L Chloride 104 (98-107) mmol/L Carbon Dioxide 25 (22-32) mmol/L BUN 13 (7-17) mg/dL Creatinine 0.59 (0.52-1.04) mg/dL Estimated GFR > 60.0 (>60) mL/min BUN/Creatinine Ratio 22.0 (6-22) Glucose 92 (70-100) mg/dL Calcium 9.6 (8.4-10.2) mg/dL Total Bilirubin 0.5 (0.2-1.3) mg/dL AST 30 (14-36) IU/L ALT 22 (<35) IU/L Alkaline Phosphatase 71 (38-126) U/L Total Protein 7.6 (6.3-8.2) g/dL Albumin 4.5 (3.5-5.0) g/dL Globulin 3.1 (1.7-4.1) g/dL Albumin/Globulin Ratio 1.5 (1.0-2.8) TSH 0.70 (0.47-4.68) uIU/mL Urine Color Urine Appearance Urine pH (4.5-8.0) Ur Specific [place] (1.000-1.035) Urine Protein (Negative) Urine Glucose (UA) (Negative) g/dL Urine Ketones (NEGATIVE) Urine Occult Blood (Negative) Urine Nitrate (Negative) Urine Bilirubin (NEGATIVE) Urine Urobilinogen (0.2) E.U./dL Ur Leukocyte Esterase (NEGATIVE) Urine RBC (0-5/HPF) Urine WBC (0-5/HPF) Ur Squamous Epith Cells (0-5/HPF) Urine Bacteria (None) Ur Culture Indicated? U Opiates 300ng/mL cut (Negative) Ur Oxycodone Screen (Negative) Urine Methadone Screen (Negative) Ur Barbiturates Screen (Negative) U Tricyclic Antidepress (Negative) Ur Phencyclidine Scrn (Negative) Ur Amphetamines Screen (Negative) U Methamphetamines Scrn (Negative) Ur MDMA Scrn (Ecstasy) (Negative) U Benzodiazepines Scrn (Negative) Urine Cocaine Screen (Negative) U Marijuana (THC) Screen (Negative) Ethyl Alcohol < 10 ( - 10) mg/dL 09/02/21 09/02/21 Range/Units 07:25 07:25 WBC (4.5-11.0) X10^3/uL RBC (4.0-5.2) X10^6/uL Hgb (12.0-16.0) g/dL Hct (36-46) % MCV (80-100) fL MCH (26-34) PG MCHC (30-36) % RDW (11.6-14.8) % Plt Count (150-400) X10^3/uL Neut % (Auto) (50-75) % Lymph % (Auto) (25-40) % [place] % (Auto) (3-14) % Eos % (Auto) (2-4) % Baso % (Auto) (0-2) % Neut # (Auto) (9567-4536) /uL Lymph # (Auto) (9925-2848) /uL [place] # (Auto) (0-900) /uL Eos # (Auto) (0-450) /uL Baso # (Auto) (0-100) /uL Sodium (137-145) mmol/L Potassium (3.4-5.1) mmol/L Chloride (98-107) mmol/L Carbon Dioxide (22-32) mmol/L BUN (7-17) mg/dL Creatinine (0.52-1.04) mg/dL Estimated GFR (>60) mL/min BUN/Creatinine Ratio (6-22) Glucose (70-100) mg/dL Calcium (8.4-10.2) mg/dL Total Bilirubin (0.2-1.3) mg/dL AST (14-36) IU/L ALT (<35) IU/L Alkaline Phosphatase (38-126) U/L Total Protein (6.3-8.2) g/dL Albumin (3.5-5.0) g/dL Globulin (1.7-4.1) g/dL Albumin/Globulin Ratio (1.0-2.8) TSH (0.47-4.68) uIU/mL Urine Color Yellow Urine Appearance Clear Urine pH 6.5 (4.5-8.0) Ur Specific [place] 1.010 (1.000-1.035) Urine Protein Negative (Negative) Urine Glucose (UA) Negative (Negative) g/dL Urine Ketones Negative (NEGATIVE) Urine Occult Blood 3+ H (Negative) Urine Nitrate Positive H (Negative) Urine Bilirubin Negative (NEGATIVE) Urine Urobilinogen 0.2 (0.2) E.U./dL Ur Leukocyte Esterase 2+ H (NEGATIVE) Urine RBC 1-5/hpf (0-5/HPF) Urine WBC 5-10/hpf H (0-5/HPF) Ur Squamous Epith Cells 1-5 /hpf (0-5/HPF) Urine Bacteria Many (>30) H (None) Ur Culture Indicated? Specimen cultured U Opiates 300ng/mL cut Positive H (Negative) Ur Oxycodone Screen Negative (Negative) Urine Methadone Screen Negative (Negative) Ur Barbiturates Screen Negative (Negative) U Tricyclic Antidepress Negative (Negative) Ur Phencyclidine Scrn Negative (Negative) Ur Amphetamines Screen Positive H (Negative) U Methamphetamines Scrn Positive H (Negative) Ur MDMA Scrn (Ecstasy) Negative (Negative) U Benzodiazepines Scrn Negative (Negative) Urine Cocaine Screen Negative (Negative) U Marijuana (THC) Screen Positive H (Negative) Ethyl Alcohol ( - 10) mg/dL <Omer Bales, DO - Last Filed: 09/02/21 10:32> Lab Data Labs: Lab Results 09/02/21 09/02/21 09/02/21 Range/Units 06:35 06:35 06:35 WBC 9.3 (4.5-11.0) X10^3/uL RBC 4.69 (4.0-5.2) X10^6/uL Hgb 12.3 (12.0-16.0) g/dL Hct 37.9 (36-46) % MCV 80.9 (80-100) fL MCH 26.2 (26-34) PG MCHC 32.4 (30-36) % RDW 14.1 (11.6-14.8) % Plt Count 382 (150-400) X10^3/uL Neut % (Auto) 75.5 H (50-75) % Lymph % (Auto) 15.3 L (25-40) % [place] % (Auto) 8.2 (3-14) % Eos % (Auto) 0.6 L (2-4) % Baso % (Auto) 0.4 (0-2) % Neut # (Auto) 7000 (4939-8661) /uL Lymph # (Auto) 1400 (9448-0295) /uL [place] # (Auto) 800 (0-900) /uL Eos # (Auto) 100 (0-450) /uL Baso # (Auto) 0 (0-100) /uL Sodium 140 (137-145) mmol/L Potassium 3.8 (3.4-5.1) mmol/L Chloride 104 (98-107) mmol/L Carbon Dioxide 25 (22-32) mmol/L BUN 13 (7-17) mg/dL Creatinine 0.59 (0.52-1.04) mg/dL Estimated GFR > 60.0 (>60) mL/min BUN/Creatinine Ratio 22.0 (6-22) Glucose 92 (70-100) mg/dL Calcium 9.6 (8.4-10.2) mg/dL Total Bilirubin 0.5 (0.2-1.3) mg/dL AST 30 (14-36) IU/L ALT 22 (<35) IU/L Alkaline Phosphatase 71 (38-126) U/L Total Protein 7.6 (6.3-8.2) g/dL Albumin 4.5 (3.5-5.0) g/dL Globulin 3.1 (1.7-4.1) g/dL Albumin/Globulin Ratio 1.5 (1.0-2.8) TSH 0.70 (0.47-4.68) uIU/mL Urine Color Urine Appearance Urine pH (4.5-8.0) Ur Specific [place] (1.000-1.035) Urine Protein (Negative) Urine Glucose (UA) (Negative) g/dL Urine Ketones (NEGATIVE) Urine Occult Blood (Negative) Urine Nitrate (Negative) Urine Bilirubin (NEGATIVE) Urine Urobilinogen (0.2) E.U./dL Ur Leukocyte Esterase (NEGATIVE) Urine RBC (0-5/HPF) Urine WBC (0-5/HPF) Ur Squamous Epith Cells (0-5/HPF) Urine Bacteria (None) Ur Culture Indicated? U Opiates 300ng/mL cut (Negative) Ur Oxycodone Screen (Negative) Urine Methadone Screen (Negative) Ur Barbiturates Screen (Negative) U Tricyclic Antidepress (Negative) Ur Phencyclidine Scrn (Negative) Ur Amphetamines Screen (Negative) U Methamphetamines Scrn (Negative) Ur MDMA Scrn (Ecstasy) (Negative) U Benzodiazepines Scrn (Negative) Urine Cocaine Screen (Negative) U Marijuana (THC) Screen (Negative) Ethyl Alcohol < 10 ( - 10) mg/dL 09/02/21 09/02/21 Range/Units 07:25 07:25 WBC (4.5-11.0) X10^3/uL RBC (4.0-5.2) X10^6/uL Hgb (12.0-16.0) g/dL Hct (36-46) % MCV (80-100) fL MCH (26-34) PG MCHC (30-36) % RDW (11.6-14.8) % Plt Count (150-400) X10^3/uL Neut % (Auto) (50-75) % Lymph % (Auto) (25-40) % [place] % (Auto) (3-14) % Eos % (Auto) (2-4) % Baso % (Auto) (0-2) % Neut # (Auto) (6420-5218) /uL Lymph # (Auto) (1336-6546) /uL [place] # (Auto) (0-900) /uL Eos # (Auto) (0-450) /uL Baso # (Auto) (0-100) /uL Sodium (137-145) mmol/L Potassium (3.4-5.1) mmol/L Chloride (98-107) mmol/L Carbon Dioxide (22-32) mmol/L BUN (7-17) mg/dL Creatinine (0.52-1.04) mg/dL Estimated GFR (>60) mL/min BUN/Creatinine Ratio (6-22) Glucose (70-100) mg/dL Calcium (8.4-10.2) mg/dL Total Bilirubin (0.2-1.3) mg/dL AST (14-36) IU/L ALT (<35) IU/L Alkaline Phosphatase (38-126) U/L Total Protein (6.3-8.2) g/dL Albumin (3.5-5.0) g/dL Globulin (1.7-4.1) g/dL Albumin/Globulin Ratio (1.0-2.8) TSH (0.47-4.68) uIU/mL Urine Color Yellow Urine Appearance Clear Urine pH 6.5 (4.5-8.0) Ur Specific [place] 1.010 (1.000-1.035) Urine Protein Negative (Negative) Urine Glucose (UA) Negative (Negative) g/dL Urine Ketones Negative (NEGATIVE) Urine Occult Blood 3+ H (Negative) Urine Nitrate Positive H (Negative) Urine Bilirubin Negative (NEGATIVE) Urine Urobilinogen 0.2 (0.2) E.U./dL Ur Leukocyte Esterase 2+ H (NEGATIVE) Urine RBC 1-5/hpf (0-5/HPF) Urine WBC 5-10/hpf H (0-5/HPF) Ur Squamous Epith Cells 1-5 /hpf (0-5/HPF) Urine Bacteria Many (>30) H (None) Ur Culture Indicated? Specimen cultured U Opiates 300ng/mL cut Positive H (Negative) Ur Oxycodone Screen Negative (Negative) Urine Methadone Screen Negative (Negative) Ur Barbiturates Screen Negative (Negative) U Tricyclic Antidepress Negative (Negative) Ur Phencyclidine Scrn Negative (Negative) Ur Amphetamines Screen Positive H (Negative) U Methamphetamines Scrn Positive H (Negative) Ur MDMA Scrn (Ecstasy) Negative (Negative) U Benzodiazepines Scrn Negative (Negative) Urine Cocaine Screen Negative (Negative) U Marijuana (THC) Screen Positive H (Negative) Ethyl Alcohol ( - 10) mg/dL MDM Narrative Medical decision making narrative: Dr bales: Received turned over. Reviewed edgard stewart's history and physical. Patient is here reporting in the emergency department in order to see social work. She has been calm. She ate breakfast. While we were waiting for social work she came out of the ring stating that she would like to go home. She stated that she was not being helped. I told her that we are waiting for social Work to arrive. She stated that she had an infestation of bugs in her hair. I told her that this is most likely the methamphetamine use. Tried to reassure her that there was no infestation. She did not believe me. She left the emergency department without discharge paperwork. Discharge Plan Departure Patient Disposition: Home Clinical Impression: Methamphetamine abuse Activity Restrictions/Additional Instructions: The symptoms that she presented with today are the result of your use of methamphetamine. You do not have bugs coming out of your hair. Recommend that you stop using methamphetamine. Contact your primary doctor for follow-up. Prescriptions: No Action fluconazole [Diflucan] 150 mg tablet 150 mg PO ONCE Qty: 1 RF: 0 ketorolac 10 mg tablet 10 mg PO Q6H PRN (Reason: pain) Qty: 14 RF: 0 cephalexin 500 mg capsule 500 mg PO BID Qty: 10 RF: 0
[2021-09-02 07:03] LABS: Add Manual Diff / Slide Review NO; Basophils Percent Auto 0.4 % (0-2); Eosinophils Absolute Auto 100 /uL (0-450); Eosinophils Percent Auto 0.6 % (2-4); Hematocrit 37.9 % (36-46); Hemoglobin 12.3 g/dL (12.0-16.0); Lymphocytes Absolute Auto 1400 /uL (1100-4500); Lymphocytes Percent Auto 15.3 % (25-40); Mean Corpuscular HGB Conc 32.4 % (30-36); Mean Corpuscular Hemoglobin 26.2 PG (26-34); Mean Corpuscular Volume 80.9 fL (80-100); Monocytes Absolute Auto 800 /uL (0-900); Monocytes Percent Auto 8.2 % (3-14); Neutrophils Absolute Auto 7000 /uL (1500-7000); Neutrophils Percent Auto 75.5 % (50-75); Platelet Count 382 X10^3/uL (150-400); Red Blood Cell Count 4.69 X10^6/uL (4.0-5.2); Red Cell Distribution Width 14.1 % (11.6-14.8); White Blood Cell Count 9.3 X10^3/uL (4.5-11.0)
[2021-09-02 07:04] LABS: Basophils Absolute Auto 0 /uL (0-100)
[2021-09-02 07:09] LABS: Alanine Aminotransferase 22 IU/L (<35); Albumin 4.5 g/dL (3.5-5.0); Albumin Globulin Ratio 1.5 (1.0-2.8); Alkaline Phosphatase 71 U/L (38-126); Aspartate Aminotransferase 30 IU/L (14-36); Bilirubin Total 0.5 mg/dL (0.2-1.3); Blood Urea Nitrogen 13 mg/dL (7-17); Calcium 9.6 mg/dL (8.4-10.2); Carbon Dioxide 25 mmol/L (22-32); Chloride 104 mmol/L (98-107); Estimated Glomerular Filt Rate > 60.0 mL/min (>60); Ethanol (ETOH) < 10 mg/dL; Globulin 3.1 g/dL (1.7-4.1); Glucose 92 mg/dL (70-100); HEMOLYSIS < 15 (0-50); Potassium 3.8 mmol/L (3.4-5.1); Sodium 140 mmol/L (137-145); Total Protein 7.6 g/dL (6.3-8.2)
--- NOTE | 2021-09-02 07:12 | PC.NURSE ---
Pt denies and S.I. or and H.I., tearful at times.
[2021-09-02 07:38] LABS: UR Morphine/Opiate cutoff 300 Positive (Negative); Ur Creatinine Normal (Normal); Ur Specific Gravity Normal (Normal); Urine Amphetamines Positive (Negative); Urine Barbiturates Negative (Negative); Urine Benzodiazepines Negative (Negative); Urine Cocaine Negative (Negative); Urine MDMA Negative (Negative); Urine Methadone Negative (Negative); Urine Methamphetamines Positive (Negative); Urine Oxycodone Negative (Negative); Urine Phencyclidine Negative (Negative); Urine Tetrahydrocannabinol Positive (Negative); Urine Tricyclic Antidepressant Negative (Negative); Urine pH Normal (Normal)
[2021-09-02 07:53] LABS: Appearance Urine UA CLEAR; Bilirubin Urine UA NEGATIVE (NEGATIVE); Color Urine UA YELLOW; Glucose Urine UA NEGATIVE (Negative); Ketones Urine UA NEGATIVE (NEGATIVE); Leukocyte Esterase Urine UA 2+ (NEGATIVE); Nitrite Urine UA POSITIVE (Negative); Occult Blood Urine UA 3+ (Negative); Protein Urine UA NEGATIVE (Negative); Urobilinogen Urine UA 0.2 E.U./dL (0.2); pH Urine UA 6.5 (4.5-8.0)
[2021-09-02 07:58] LABS: RBC Urine 1-5/HPF (0-5/HPF); Squamous Epithelial Cell Urine 1-5 /HPF (0-5/HPF); WBC Urine 5-10/HPF (0-5/HPF)
[2021-09-02 07:59] LABS: Bacteria Urine Many (>30); Culture Indicated Urine Specimen Cultured
[2021-09-02] MEDS: ACETAMINOPHEN 325 MG TABLET 650 MG PO (08:52)
== END 2021-09-02 10:03 | disposition home or self-care (01) ==
PROVIDERS: Emergency Medicine; Emergency Provider Emergency Medicine
DX: F15.10 Other stimulant abuse, uncomplicated (principal)
CPT/HCPCS: 36415; 80053; 80305; 80320; 81001; 84443; 85025; 87086; 87186; 99283

== ENCOUNTER 2021-09-03 03:04 | Emergency (ER) | payer OTHER, MEDICAID, SELFPAY ==
[2021-09-03 03:17] VITALS: BP 145/93; PULSE 90; RESP 16; TEMP 37.2; O2SAT 99
--- NOTE | 2021-09-03 04:00 | ED_ITS ---
HPI - Skin/Abscess/Foreign Bdy General Chief complaint: Skin/Abscess/Foreign Body Stated complaint: very sick (no other info) Time Seen by Provider: 09/03/21 03:57 Source: patient Mode of arrival: Ambulatory Limitations: no limitations History of Present Illness HPI narrative: This is a 51-year-old female comes emergency department with concern for bugs in her hair. She states that she has irritation and pain in that area. She is captured some and puts them in plastic bags. Patient states she has felt generally unwell. She denies any redness or drainage. She denies any chest pain or shortness of breath. No nausea or vomiting. No cold cough or congestion. Patient denies any abdominal pain. She denies any nausea or vomiting she denies any diarrhea constipation. She denies any urinary symptoms. She does state that she has been using methamphetamines most recently 2-3 days ago. She has used tobacco. She states occasional alcohol. Patient states she was told that her symptoms are from using methamphetamines and she does not believe this. Related Data Previous Rx's Medication Instructions Recorded cephalexin 500 mg capsule 500 mg PO BID #10 cap 06/26/21 ketorolac 10 mg tablet 10 mg PO Q6H PRN #14 tab 06/26/21 fluconazole 150 mg tablet 150 mg PO ONCE #1 tab 07/08/21 (Diflucan) Allergies Allergy/AdvReac Type Severity Reaction Status Date / Time No Known Drug Allergies Allergy Verified 09/02/21 07:37 Review of Systems Review of Systems ROS Unobtainable: All systems reviewed & are unremarkable except as noted in HPI and below Patient History Medical History Alcohol abuse Alopecia Chronic pain of left lower extremity Social History Smoking Status: Current every day smoker Tobacco: How many years used: 30 quit status: not considering quitting second hand exposure: No alcohol intake: current (Beer or shot, 2-3x/week) substance use type: marijuana (smoke,edibles. daily) Smoking Status: Current every day smoker tobacco type: cigarettes alcohol intake frequency: a few times a week Substance Use Type: marijuana, heroin and methamphetamine Exam Narrative Exam Narrative: GEN: alert and oriented, patient appears to be in mild distress. Patient's head is shaved. She was initially sleeping but awakens easily. HEENT: Atraumatic, pupils are equal round reactive to light, extraocular movements are intact, nares are clear. Throat is clear without any exudates, erythema, tonsillar enlargement or uvular deviation HEART: Regular rate and rhythm without murmur, clicks, rubs. LUNGS:Lungs clear to auscultation, no wheezes, rales, crackles, chest moves symmetrically ABD:bowel sounds normal, soft, non-tender, no guarding, rebound, rigidity, no masses noted, no hepatosplenomegaly MSCL: Non-tender, no muscle atrophy, muscles strength 5/5 upper and lower extremities, full range of motion, normal gait NEURO:CN 2-12 intact, sensation normal SKIN: No rash, erythema or skin changes. Patient's scalp actually appears quite clean, there is no flaking or other skin changes really appreciated. Able to inspect it well as her scalp is shaved to about a 1/2 inch in length. Patient does not have any other obvious rashes or skin changes. No papules, nodules, no small areas of be consistent with a scabies or bed bug bites. PSYCH: No thoughts of harming self or others. Patient does admit to methamphetamine abuse. Initial Vital Signs Initial Vital Signs: Vital Signs Temperature 98.9 F 09/03/21 03:17 Pulse Rate 90 09/03/21 03:17 Respiratory Rate 16 09/03/21 03:17 Blood Pressure 145/93 H 09/03/21 03:17 Pulse Oximetry 99 09/03/21 03:17 Course Vital Signs Vital signs: Vital Signs - 8 hr 09/03/21 03:17 Temperature 98.9 F Pulse Rate 90 Respiratory Rate 16 Blood Pressure 145/93 H Pulse Oximetry 99 MDM - Skin/Abscess/Foreign Bdy MDM Narrative Medical decision making narrative: This is a 51-year-old female who has returned with similar symptoms as last night. Patient was seen by myself in July for fungal infection in her blood and been that time patient was quite convinced that she had 1. On examination today I do not see any changes to her skin or scalp that make me suspicious for actual infection and she does not have any other rashes that make me suspicious for scabies or bedbugs or similar type issues. Patient does admit to methamphetamine use I suspect this is the cause of her symptoms and she is quite adamant that it is not. She states she is going to go elsewhere to be evaluated. She was offered to talk to our social service technician later today but she does not wish to. She is quite frustrated with my current analysis of her situation. She does not appear to be gravely disabled at this time. Discharge Plan Departure Patient Disposition: Home Clinical Impression: Methamphetamine use Activity Restrictions/Additional Instructions: Individuals who used methamphetamine off in feel that they have bugs or insects in her skin or hair. I do not see any signs of this today. I would recommend that you be seen for treatment for methamphetamine use and evaluated by our social service technician if you are willing. You may return at any time for evaluation. Prescriptions: No Action fluconazole [Diflucan] 150 mg tablet 150 mg PO ONCE Qty: 1 RF: 0 ketorolac 10 mg tablet 10 mg PO Q6H PRN (Reason: pain) Qty: 14 RF: 0 cephalexin 500 mg capsule 500 mg PO BID Qty: 10 RF: 0 Referrals: Matt Avila ARNP [Primary Care Provider] -
[2021-09-03 04:10] VITALS: BP 145/88; PULSE 80; RESP 18; O2SAT 98
--- NOTE | 2021-09-03 05:06 | PC.NURSE ---
Exam deferred to DR Smith.patient was not cooperative with staff.
== END 2021-09-03 04:57 | disposition home or self-care (01) ==
PROVIDERS: Emergency Provider Emergency Medicine; PCP Nurse Practitioner Family
DX: F15.10 Other stimulant abuse, uncomplicated (principal)
CPT/HCPCS: 99281

== ENCOUNTER 2021-09-20 04:30 | Emergency (ER) | payer OTHER, MEDICAID, SELFPAY ==
[2021-09-20 04:30] VITALS: BMI 19.7
--- NOTE | 2021-09-20 04:52 | ED.PSYCH ---
HPI - Psych <Abbey Rust DO - Last Filed: 09/26/21 07:28> General Chief Complaint: Psychiatric Symptoms Stated Complaint: wants to end her life Time Seen by Provider: 09/20/21 04:31 Source: patient Mode of arrival: Ambulatory History of Present Illness HPI Narrative: Patient is a 51-year-old female history of bipolar and methamphetamine abuse presenting today with suicidal ideation and and depression. She has been to the emergency department a few times quite concerned for parasite infection. The thought has become all consuming so much so that she shaved her head. She says she is unable to focus on anything else no one will help her and she is very frustrated. She thought that she was hit her car for carbon monoxide poisoning and . This month all with consuming thoughts of parasites. She has been evaluated by social Work. MD complaint: suicidal ideation and feels depressed Related Data Previous Rx's Medication Instructions Recorded cephalexin 500 mg capsule 500 mg PO BID #10 cap 06/26/21 ketorolac 10 mg tablet 10 mg PO Q6H PRN #14 tab 06/26/21 fluconazole 150 mg tablet 150 mg PO ONCE #1 tab 07/08/21 (Diflucan) cephalexin 500 mg capsule 500 mg PO BID #10 cap 09/22/21 Allergies Allergy/AdvReac Type Severity Reaction Status Date / Time No Known Drug Allergies Allergy Verified 09/02/21 07:37 Review of Systems <Abbey Rust DO - Last Filed: 09/26/21 07:28> Review of Systems Narrative: GENERAL: Denies chills,fever HEENT: Denies throat pain RESPIRATORY: Denies dyspnea, cough, wheezing CARDIOVASCULAR: Denies chest pain, palpitations GASTROINTESTINAL: Denies nausea, vomiting MUSCULOSKELETAL: Denies extremity pain, injury SKIN: No rash, no laceration, no pruritus NEUROLOGIC: Denies weakness, dizziness, headache, numbness 8 point review of systems is negative except for those stated above and HPI Psychiatric Psychiatric: Reports system reviewed and no additional complaints, except as documented, Reports as per HPI, Reports depression, Reports hopelessness, Reports visual hallucinations, Reports hallucinations and Reports suicidal ideation Patient History <Abbey Rust DO - Last Filed: 09/26/21 07:28> Medical History Alcohol abuse Alopecia Chronic pain of left lower extremity Social History Smoking Status: Current every day smoker Tobacco: How many years used: 30 quit status: not considering quitting second hand exposure: No alcohol intake: current (Beer or shot, 2-3x/week) substance use type: marijuana (smoke,edibles. daily) Smoking Status: Current every day smoker tobacco type: cigarettes alcohol intake frequency: a few times a week Substance Use Type: marijuana, heroin and methamphetamine Exam <Abbey Rust DO - Last Filed: 09/26/21 07:28> Initial Vital Signs Initial Vital Signs: Vital Signs Temperature 97.5 F L 09/20/21 05:01 Pulse Rate 70 09/20/21 05:01 Respiratory Rate 18 09/20/21 05:01 Blood Pressure 149/83 H 09/20/21 05:01 Pulse Oximetry 100 09/20/21 05:01 GENERAL: Tearful female appears slightly disheveled CARDIOVASCULAR: peripheral pulses in tact, cap refill <2 sec RESPIRATORY: No respiratory distress, speaks in full sentences without difficulty EXTREMITIES: Normal range of motion, no clubbing or edema. Neurovascularly intact NEUROLOGICAL: Cranial nerves II through XII grossly intact. Normal gait and speech. SKIN: Warm, dry, no petechiae, no rashes or lesions. <Alyssa Smith DO - Last Filed: 09/20/21 17:56> Initial Vital Signs Initial Vital Signs: Vital Signs Temperature 97.5 F L 09/20/21 05:01 Pulse Rate 70 09/20/21 05:01 Respiratory Rate 18 09/20/21 05:01 Blood Pressure 149/83 H 09/20/21 05:01 Pulse Oximetry 100 09/20/21 05:01 <Duke Bender DO - Last Filed: 09/22/21 13:26> Initial Vital Signs Initial Vital Signs: Vital Signs Temperature 97.5 F L 09/20/21 05:01 Pulse Rate 70 09/20/21 05:01 Respiratory Rate 18 09/20/21 05:01 Blood Pressure 149/83 H 09/20/21 05:01 Pulse Oximetry 100 09/20/21 05:01 Course <DO Henry Garcia Last Filed: 09/26/21 07:28> Orders Ordered: Discontinued Medications Fosfomycin Tromethamine (Fosfomycin 3 Gm Packet) 3 gm PO NOW ONE Stop: 09/20/21 07:33 Last Admin: 09/20/21 08:30 Dose: 3 gm Documented by: TORSTEN Vital Signs Vital signs: Vital Signs - 8 hr 09/20/21 10:16 Temperature 98.9 F Pulse Rate 78 Respiratory Rate 16 Blood Pressure 125/87 Pulse Oximetry 96 <Alyssa Smith DO - Last Filed: 09/20/21 17:56> Orders Ordered: Discontinued Medications Fosfomycin Tromethamine (Fosfomycin 3 Gm Packet) 3 gm PO NOW ONE Stop: 09/20/21 07:33 Last Admin: 09/20/21 08:30 Dose: 3 gm Documented by: TORSTEN Vital Signs Vital signs: Vital Signs - 8 hr 09/20/21 10:16 Temperature 98.9 F Pulse Rate 78 Respiratory Rate 16 Blood Pressure 125/87 Pulse Oximetry 96 <Duke Bender DO - Last Filed: 09/22/21 13:26> Course Course Narrative: 09/22/2021 1130 - I have reviewed urine Cx today and patient will require ABX which have been electronically transmitted to patient pharmacy. I did not see or evaluate the patient on date of visit Orders Ordered: Discontinued Medications Fosfomycin Tromethamine (Fosfomycin 3 Gm Packet) 3 gm PO NOW ONE Stop: 09/20/21 07:33 Last Admin: 09/20/21 08:30 Dose: 3 gm Documented by: TORSTEN Vital Signs Vital signs: Vital Signs - 8 hr 09/20/21 10:16 Temperature 98.9 F Pulse Rate 78 Respiratory Rate 16 Blood Pressure 125/87 Pulse Oximetry 96 [facility] - Psych <Abbey Rust DO - Last Filed: 09/26/21 07:28> Medical Records Medical records narrative: Patient is currently voluntary and wants placement. At this time does not meet involuntary criteria. Patient signed out to Dr. Smith. Awaiting social service manager evaluation Lab Data Result diagrams: 09/20/21 05:47 09/20/21 05:47 Labs: Lab Results 09/20/21 09/20/21 09/20/21 Range/Units 05:47 05:47 05:47 WBC 4.9 (4.5-11.0) X10^3/uL RBC 4.50 (4.0-5.2) X10^6/uL Hgb 11.7 L (12.0-16.0) g/dL Hct 36.1 (36-46) % MCV 80.3 (80-100) fL MCH 26.0 (26-34) PG MCHC 32.4 (30-36) % RDW 13.9 (11.6-14.8) % Plt Count 308 (150-400) X10^3/uL Neut % (Auto) 57.2 (50-75) % Lymph % (Auto) 28.9 (25-40) % [place] % (Auto) 11.6 (3-14) % Eos % (Auto) 1.6 L (2-4) % Baso % (Auto) 0.7 (0-2) % Neut # (Auto) 2800 (7967-8565) /uL Lymph # (Auto) 1400 (0510-3867) /uL [place] # (Auto) 600 (0-900) /uL Eos # (Auto) 100 (0-450) /uL Baso # (Auto) 0 (0-100) /uL Sodium 139 (137-145) mmol/L Potassium 3.6 (3.4-5.1) mmol/L Chloride 105 (98-107) mmol/L Carbon Dioxide 27 (22-32) mmol/L BUN 16 (7-17) mg/dL Creatinine 0.64 (0.52-1.04) mg/dL Estimated GFR > 60.0 (>60) mL/min BUN/Creatinine Ratio 25.0 H (6-22) Glucose 89 (70-100) mg/dL Calcium 9.2 (8.4-10.2) mg/dL Total Bilirubin 0.5 (0.2-1.3) mg/dL AST 27 (14-36) IU/L ALT 19 (<35) IU/L Alkaline Phosphatase 57 (38-126) U/L Total Protein 6.8 (6.3-8.2) g/dL Albumin 4.0 (3.5-5.0) g/dL Globulin 2.8 (1.7-4.1) g/dL Albumin/Globulin Ratio 1.4 (1.0-2.8) Urine RBC (0-5/HPF) Urine WBC (0-5/HPF) Ur Squamous Epith Cells (0-5/HPF) Urine Bacteria (None) Ur Culture Indicated? U Opiates 300ng/mL cut (Negative) Ur Oxycodone Screen (Negative) Urine Methadone Screen (Negative) Ur Barbiturates Screen (Negative) U Tricyclic Antidepress (Negative) Ur Phencyclidine Scrn (Negative) Ur Amphetamines Screen (Negative) U Methamphetamines Scrn (Negative) Ur MDMA Scrn (Ecstasy) (Negative) U Benzodiazepines Scrn (Negative) Urine Cocaine Screen (Negative) U Marijuana (THC) Screen (Negative) Ethyl Alcohol < 10 ( - 10) mg/dL SARS-CoV-2 (PCR) Negative (Negative) 09/20/21 09/20/21 Range/Units 06:57 06:57 WBC (4.5-11.0) X10^3/uL RBC (4.0-5.2) X10^6/uL Hgb (12.0-16.0) g/dL Hct (36-46) % MCV (80-100) fL MCH (26-34) PG MCHC (30-36) % RDW (11.6-14.8) % Plt Count (150-400) X10^3/uL Neut % (Auto) (50-75) % Lymph % (Auto) (25-40) % [place] % (Auto) (3-14) % Eos % (Auto) (2-4) % Baso % (Auto) (0-2) % Neut # (Auto) (8742-0612) /uL Lymph # (Auto) (4219-8251) /uL [place] # (Auto) (0-900) /uL Eos # (Auto) (0-450) /uL Baso # (Auto) (0-100) /uL Sodium (137-145) mmol/L Potassium (3.4-5.1) mmol/L Chloride (98-107) mmol/L Carbon Dioxide (22-32) mmol/L BUN (7-17) mg/dL Creatinine (0.52-1.04) mg/dL Estimated GFR (>60) mL/min BUN/Creatinine Ratio (6-22) Glucose (70-100) mg/dL Calcium (8.4-10.2) mg/dL Total Bilirubin (0.2-1.3) mg/dL AST (14-36) IU/L ALT (<35) IU/L Alkaline Phosphatase (38-126) U/L Total Protein (6.3-8.2) g/dL Albumin (3.5-5.0) g/dL Globulin (1.7-4.1) g/dL Albumin/Globulin Ratio (1.0-2.8) Urine RBC None seen (0-5/HPF) Urine WBC 5-10/hpf H (0-5/HPF) Ur Squamous Epith Cells 1-5 /hpf (0-5/HPF) Urine Bacteria Many (>30) H (None) Ur Culture Indicated? Specimen cultured U Opiates 300ng/mL cut Positive H (Negative) Ur Oxycodone Screen Negative (Negative) Urine Methadone Screen Negative (Negative) Ur Barbiturates Screen Negative (Negative) U Tricyclic Antidepress Negative (Negative) Ur Phencyclidine Scrn Negative (Negative) Ur Amphetamines Screen Positive H (Negative) U Methamphetamines Scrn Positive H (Negative) Ur MDMA Scrn (Ecstasy) Negative (Negative) U Benzodiazepines Scrn Negative (Negative) Urine Cocaine Screen Negative (Negative) U Marijuana (THC) Screen Positive H (Negative) Ethyl Alcohol ( - 10) mg/dL SARS-CoV-2 (PCR) (Negative) Urine Dip Bedside Urine Glucose Negative Bedside Urine Bilirubin - Negative Bedside Urine Ketone - Negative Urine Specific [place] 1.020 Bedside Urine Occult Blood - Negative Bedside Urine pH 6.0 Bedside Urine Protein - Negative Bedside Urine Urobilinogen 0.2 Bedside Urine Nitrite + Positive Bedside Urine Leukocytes + 70 Esterase <Alyssa Smith, DO - Last Filed: 09/20/21 17:56> Medical Records Medical records narrative: Patient is currently voluntary and wants placement. At this time does not meet involuntary criteria. Patient signed out to Dr. Smith. Awaiting social service manager evaluation. Patient seen and evaluated by myself independently. Patient feels much better after sleeping and feels like her bugs have been improved or gone away. She states she is not feeling suicidal she feels safe to return home. She states that she would reach out for help. She was seen by social work in the department. They do feel patient is appropriate for discharge at this time as well. She was offered detox options defers these. Patient and I discussed that she is welcome to return at any time and she feels comfortable with this plan. Lab Data Labs: Lab Results 09/20/21 09/20/21 09/20/21 Range/Units 05:47 05:47 05:47 WBC 4.9 (4.5-11.0) X10^3/uL RBC 4.50 (4.0-5.2) X10^6/uL Hgb 11.7 L (12.0-16.0) g/dL Hct 36.1 (36-46) % MCV 80.3 (80-100) fL MCH 26.0 (26-34) PG MCHC 32.4 (30-36) % RDW 13.9 (11.6-14.8) % Plt Count 308 (150-400) X10^3/uL Neut % (Auto) 57.2 (50-75) % Lymph % (Auto) 28.9 (25-40) % [place] % (Auto) 11.6 (3-14) % Eos % (Auto) 1.6 L (2-4) % Baso % (Auto) 0.7 (0-2) % Neut # (Auto) 2800 (3728-7085) /uL Lymph # (Auto) 1400 (1190-2540) /uL [place] # (Auto) 600 (0-900) /uL Eos # (Auto) 100 (0-450) /uL Baso # (Auto) 0 (0-100) /uL Sodium 139 (137-145) mmol/L Potassium 3.6 (3.4-5.1) mmol/L Chloride 105 (98-107) mmol/L Carbon Dioxide 27 (22-32) mmol/L BUN 16 (7-17) mg/dL Creatinine 0.64 (0.52-1.04) mg/dL Estimated GFR > 60.0 (>60) mL/min BUN/Creatinine Ratio 25.0 H (6-22) Glucose 89 (70-100) mg/dL Calcium 9.2 (8.4-10.2) mg/dL Total Bilirubin 0.5 (0.2-1.3) mg/dL AST 27 (14-36) IU/L ALT 19 (<35) IU/L Alkaline Phosphatase 57 (38-126) U/L Total Protein 6.8 (6.3-8.2) g/dL Albumin 4.0 (3.5-5.0) g/dL Globulin 2.8 (1.7-4.1) g/dL Albumin/Globulin Ratio 1.4 (1.0-2.8) Urine RBC (0-5/HPF) Urine WBC (0-5/HPF) Ur Squamous Epith Cells (0-5/HPF) Urine Bacteria (None) Ur Culture Indicated? U Opiates 300ng/mL cut (Negative) Ur Oxycodone Screen (Negative) Urine Methadone Screen (Negative) Ur Barbiturates Screen (Negative) U Tricyclic Antidepress (Negative) Ur Phencyclidine Scrn (Negative) Ur Amphetamines Screen (Negative) U Methamphetamines Scrn (Negative) Ur MDMA Scrn (Ecstasy) (Negative) U Benzodiazepines Scrn (Negative) Urine Cocaine Screen (Negative) U Marijuana (THC) Screen (Negative) Ethyl Alcohol < 10 ( - 10) mg/dL SARS-CoV-2 (PCR) Negative (Negative) 09/20/21 09/20/21 Range/Units 06:57 06:57 WBC (4.5-11.0) X10^3/uL RBC (4.0-5.2) X10^6/uL Hgb (12.0-16.0) g/dL Hct (36-46) % MCV (80-100) fL MCH (26-34) PG MCHC (30-36) % RDW (11.6-14.8) % Plt Count (150-400) X10^3/uL Neut % (Auto) (50-75) % Lymph % (Auto) (25-40) % [place] % (Auto) (3-14) % Eos % (Auto) (2-4) % Baso % (Auto) (0-2) % Neut # (Auto) (9005-2116) /uL Lymph # (Auto) (1989-4820) /uL [place] # (Auto) (0-900) /uL Eos # (Auto) (0-450) /uL Baso # (Auto) (0-100) /uL Sodium (137-145) mmol/L Potassium (3.4-5.1) mmol/L Chloride (98-107) mmol/L Carbon Dioxide (22-32) mmol/L BUN (7-17) mg/dL Creatinine (0.52-1.04) mg/dL Estimated GFR (>60) mL/min BUN/Creatinine Ratio (6-22) Glucose (70-100) mg/dL Calcium (8.4-10.2) mg/dL Total Bilirubin (0.2-1.3) mg/dL AST (14-36) IU/L ALT (<35) IU/L Alkaline Phosphatase (38-126) U/L Total Protein (6.3-8.2) g/dL Albumin (3.5-5.0) g/dL Globulin (1.7-4.1) g/dL Albumin/Globulin Ratio (1.0-2.8) Urine RBC None seen (0-5/HPF) Urine WBC 5-10/hpf H (0-5/HPF) Ur Squamous Epith Cells 1-5 /hpf (0-5/HPF) Urine Bacteria Many (>30) H (None) Ur Culture Indicated? Specimen cultured U Opiates 300ng/mL cut Positive H (Negative) Ur Oxycodone Screen Negative (Negative) Urine Methadone Screen Negative (Negative) Ur Barbiturates Screen Negative (Negative) U Tricyclic Antidepress Negative (Negative) Ur Phencyclidine Scrn Negative (Negative) Ur Amphetamines Screen Positive H (Negative) U Methamphetamines Scrn Positive H (Negative) Ur MDMA Scrn (Ecstasy) Negative (Negative) U Benzodiazepines Scrn Negative (Negative) Urine Cocaine Screen Negative (Negative) U Marijuana (THC) Screen Positive H (Negative) Ethyl Alcohol ( - 10) mg/dL SARS-CoV-2 (PCR) (Negative) Urine Dip Bedside Urine Glucose Negative Bedside Urine Bilirubin - Negative Bedside Urine Ketone - Negative Urine Specific [place] 1.020 Bedside Urine Occult Blood - Negative Bedside Urine pH 6.0 Bedside Urine Protein - Negative Bedside Urine Urobilinogen 0.2 Bedside Urine Nitrite + Positive Bedside Urine Leukocytes + 70 Esterase <Duke Bender, DO - Last Filed: 09/22/21 13:26> Lab Data Labs: Lab Results 09/20/21 09/20/21 09/20/21 Range/Units 05:47 05:47 05:47 WBC 4.9 (4.5-11.0) X10^3/uL RBC 4.50 (4.0-5.2) X10^6/uL Hgb 11.7 L (12.0-16.0) g/dL Hct 36.1 (36-46) % MCV 80.3 (80-100) fL MCH 26.0 (26-34) PG MCHC 32.4 (30-36) % RDW 13.9 (11.6-14.8) % Plt Count 308 (150-400) X10^3/uL Neut % (Auto) 57.2 (50-75) % Lymph % (Auto) 28.9 (25-40) % [place] % (Auto) 11.6 (3-14) % Eos % (Auto) 1.6 L (2-4) % Baso % (Auto) 0.7 (0-2) % Neut # (Auto) 2800 (6804-3819) /uL Lymph # (Auto) 1400 (3082-7253) /uL [place] # (Auto) 600 (0-900) /uL Eos # (Auto) 100 (0-450) /uL Baso # (Auto) 0 (0-100) /uL Sodium 139 (137-145) mmol/L Potassium 3.6 (3.4-5.1) mmol/L Chloride 105 (98-107) mmol/L Carbon Dioxide 27 (22-32) mmol/L BUN 16 (7-17) mg/dL Creatinine 0.64 (0.52-1.04) mg/dL Estimated GFR > 60.0 (>60) mL/min BUN/Creatinine Ratio 25.0 H (6-22) Glucose 89 (70-100) mg/dL Calcium 9.2 (8.4-10.2) mg/dL Total Bilirubin 0.5 (0.2-1.3) mg/dL AST 27 (14-36) IU/L ALT 19 (<35) IU/L Alkaline Phosphatase 57 (38-126) U/L Total Protein 6.8 (6.3-8.2) g/dL Albumin 4.0 (3.5-5.0) g/dL Globulin 2.8 (1.7-4.1) g/dL Albumin/Globulin Ratio 1.4 (1.0-2.8) Urine RBC (0-5/HPF) Urine WBC (0-5/HPF) Ur Squamous Epith Cells (0-5/HPF) Urine Bacteria (None) Ur Culture Indicated? U Opiates 300ng/mL cut (Negative) Ur Oxycodone Screen (Negative) Urine Methadone Screen (Negative) Ur Barbiturates Screen (Negative) U Tricyclic Antidepress (Negative) Ur Phencyclidine Scrn (Negative) Ur Amphetamines Screen (Negative) U Methamphetamines Scrn (Negative) Ur MDMA Scrn (Ecstasy) (Negative) U Benzodiazepines Scrn (Negative) Urine Cocaine Screen (Negative) U Marijuana (THC) Screen (Negative) Ethyl Alcohol < 10 ( - 10) mg/dL SARS-CoV-2 (PCR) Negative (Negative) 09/20/21 09/20/21 Range/Units 06:57 06:57 WBC (4.5-11.0) X10^3/uL RBC (4.0-5.2) X10^6/uL Hgb (12.0-16.0) g/dL Hct (36-46) % MCV (80-100) fL MCH (26-34) PG MCHC (30-36) % RDW (11.6-14.8) % Plt Count (150-400) X10^3/uL Neut % (Auto) (50-75) % Lymph % (Auto) (25-40) % [place] % (Auto) (3-14) % Eos % (Auto) (2-4) % Baso % (Auto) (0-2) % Neut # (Auto) (9089-0843) /uL Lymph # (Auto) (8481-0613) /uL [place] # (Auto) (0-900) /uL Eos # (Auto) (0-450) /uL Baso # (Auto) (0-100) /uL Sodium (137-145) mmol/L Potassium (3.4-5.1) mmol/L Chloride (98-107) mmol/L Carbon Dioxide (22-32) mmol/L BUN (7-17) mg/dL Creatinine (0.52-1.04) mg/dL Estimated GFR (>60) mL/min BUN/Creatinine Ratio (6-22) Glucose (70-100) mg/dL Calcium (8.4-10.2) mg/dL Total Bilirubin (0.2-1.3) mg/dL AST (14-36) IU/L ALT (<35) IU/L Alkaline Phosphatase (38-126) U/L Total Protein (6.3-8.2) g/dL Albumin (3.5-5.0) g/dL Globulin (1.7-4.1) g/dL Albumin/Globulin Ratio (1.0-2.8) Urine RBC None seen (0-5/HPF) Urine WBC 5-10/hpf H (0-5/HPF) Ur Squamous Epith Cells 1-5 /hpf (0-5/HPF) Urine Bacteria Many (>30) H (None) Ur Culture Indicated? Specimen cultured U Opiates 300ng/mL cut Positive H (Negative) Ur Oxycodone Screen Negative (Negative) Urine Methadone Screen Negative (Negative) Ur Barbiturates Screen Negative (Negative) U Tricyclic Antidepress Negative (Negative) Ur Phencyclidine Scrn Negative (Negative) Ur Amphetamines Screen Positive H (Negative) U Methamphetamines Scrn Positive H (Negative) Ur MDMA Scrn (Ecstasy) Negative (Negative) U Benzodiazepines Scrn Negative (Negative) Urine Cocaine Screen Negative (Negative) U Marijuana (THC) Screen Positive H (Negative) Ethyl Alcohol ( - 10) mg/dL SARS-CoV-2 (PCR) (Negative) Urine Dip Bedside Urine Glucose Negative Bedside Urine Bilirubin - Negative Bedside Urine Ketone - Negative Urine Specific [place] 1.020 Bedside Urine Occult Blood - Negative Bedside Urine pH 6.0 Bedside Urine Protein - Negative Bedside Urine Urobilinogen 0.2 Bedside Urine Nitrite + Positive Bedside Urine Leukocytes + 70 Esterase Discharge Plan Departure Patient Disposition: Home Clinical Impression: Suicidal thoughts, UTI (urinary tract infection), Methamphetamine use Instructions: DI for Suicidal Ideation-Adult Activity Restrictions/Additional Instructions: Follow-up for recheck. One option for counseling and resources is included below is [facility]. They can also discussed potential detox resources for methamphetamine use. Glad her feeling better at this time. If you are feeling unsafe or having thoughts of harming yourself again or anyone else please return at any time or call 911. If you feel you need to go to [facility]. Call had of time ([phone]) to inquire about an available bed. If there are no beds called daily and 9 AM and 9 PM to check on bed availability. If you're feeling suicidal or having suicidal thoughts, contact the suicide hotline (self referral number for counseling and resources also). . Prescriptions: New cephalexin 500 mg capsule 500 mg PO BID Qty: 10 RF: 0 No Action fluconazole [Diflucan] 150 mg tablet 150 mg PO ONCE Qty: 1 RF: 0 ketorolac 10 mg tablet 10 mg PO Q6H PRN (Reason: pain) Qty: 14 RF: 0 cephalexin 500 mg capsule 500 mg PO BID Qty: 10 RF: 0 Referrals: Matt Avila ARNP [Primary Care Provider] -
[2021-09-20 05:01] VITALS: BP 149/83; PULSE 70; RESP 18; TEMP 36.4; O2SAT 100
[2021-09-20 05:57] LABS: Add Manual Diff / Slide Review NO; Basophils Absolute Auto 0 /uL (0-100); Basophils Percent Auto 0.7 % (0-2); Eosinophils Absolute Auto 100 /uL (0-450); Eosinophils Percent Auto 1.6 % (2-4); Hematocrit 36.1 % (36-46); Hemoglobin 11.7 g/dL (12.0-16.0); Lymphocytes Absolute Auto 1400 /uL (1100-4500); Lymphocytes Percent Auto 28.9 % (25-40); Mean Corpuscular HGB Conc 32.4 % (30-36); Mean Corpuscular Volume 80.3 fL (80-100); Monocytes Absolute Auto 600 /uL (0-900); Monocytes Percent Auto 11.6 % (3-14); Neutrophils Absolute Auto 2800 /uL (1500-7000); Neutrophils Percent Auto 57.2 % (50-75); Platelet Count 308 X10^3/uL (150-400); Red Cell Distribution Width 13.9 % (11.6-14.8); White Blood Cell Count 4.9 X10^3/uL (4.5-11.0)
[2021-09-20 06:08] LABS: Alanine Aminotransferase 19 IU/L (<35); Albumin Globulin Ratio 1.4 (1.0-2.8); Alkaline Phosphatase 57 U/L (38-126); Aspartate Aminotransferase 27 IU/L (14-36); Bilirubin Total 0.5 mg/dL (0.2-1.3); Blood Urea Nitrogen 16 mg/dL (7-17); Calcium 9.2 mg/dL (8.4-10.2); Carbon Dioxide 27 mmol/L (22-32); Chloride 105 mmol/L (98-107); Estimated Glomerular Filt Rate > 60.0 mL/min (>60); Ethanol (ETOH) < 10 mg/dL; Globulin 2.8 g/dL (1.7-4.1); Glucose 89 mg/dL (70-100); HEMOLYSIS < 15 (0-50); Potassium 3.6 mmol/L (3.4-5.1); Sodium 139 mmol/L (137-145); Total Protein 6.8 g/dL (6.3-8.2)
[2021-09-20 06:10] LABS: COVID19 -Nasal RAPID Negative (Negative)
[2021-09-20 07:20] LABS: Bacteria Urine Many (>30); Culture Indicated Urine Specimen Cultured; RBC Urine None Seen (0-5/HPF); Squamous Epithelial Cell Urine 1-5 /HPF (0-5/HPF); WBC Urine 5-10/HPF (0-5/HPF)
[2021-09-20 07:34] LABS: UR Morphine/Opiate cutoff 300 Positive (Negative); Ur Creatinine Normal (Normal); Ur Specific Gravity Normal (Normal); Urine Amphetamines Positive (Negative); Urine Barbiturates Negative (Negative); Urine Benzodiazepines Negative (Negative); Urine Cocaine Negative (Negative); Urine MDMA Negative (Negative); Urine Methadone Negative (Negative); Urine Methamphetamines Positive (Negative); Urine Oxycodone Negative (Negative); Urine Phencyclidine Negative (Negative); Urine Tetrahydrocannabinol Positive (Negative); Urine Tricyclic Antidepressant Negative (Negative); Urine pH Normal (Normal)
[2021-09-20] MEDS: FOSFOMYCIN 3 GM PACKET PO (08:30)
--- NOTE | 2021-09-20 09:26 | CM.SWNOTE ---
Patient is a 51 yo female who was admitted to [facility] ED on 09/20/21 for suicidal ideation with plan. Pt has [employer] and [employer] for insurance and her PCP is Matt Avila. EMR was reviewed. Per ED MD, SALES ENABLEMENT SPECIALIST consult placed due to pt's suicidal ideation with plan and hx of OFELIA. SALES ENABLEMENT SPECIALIST met with pt for MH assessment, see below. SALES ENABLEMENT SPECIALIST to begin attempting to find voluntary Inpt MH tx for pt for stabilization and med management. LASHON Jordan Discharge Planning/Care Management ED Psychiatric Symptoms Assessment Start: 09/20/21 04:51 Freq: Status: Active Protocol: Document 09/20/21 04:51 KG (Rec: 09/20/21 04:54 KG [id number]) Psychiatric Symptoms Assessment Symptoms/Complaint Suicidal Ideation Onset ongoing Duration Getting Worse History Of Same Yes Context Recent Drug Abuse,Unknown Improves With Nothing Worsens With Drug Use Associated Psychiatric Symptoms Delusions,Suicidal Ideation Associated Symptoms Denies Other Symptoms If Self Harm Admits Thoughts of Self Harm, Has Plans Details of Plan wants to of carbon monoxide poisoning in car Level of Consciousness Alert,Awake Patient Orientation Name,Age,Birthday,Month,Date, Year,Day of Week,Place, Situation Patient Behavior/Mood Crying/Tearful Ability to Follow Directions Excellent Patient Cognition Impaired No Affect Description Calm,Tearful Patient Appearance Bizarre Hallucination Type Tactile Delusion Description Present Thought Process: Illogical Depressive Symptoms Crying Spells,Recurrent Thoughts of or Suicide, Unhappiness Feelings of Hopelessness Yes Suicidal Ideation Frequent Suicide Plan Feasible Homicidal Ideation None Nausea/Vomiting None Document 09/20/21 06:54 KG (Rec: 09/20/21 06:54 KG [email or web address]) Psychiatric Symptoms Assessment Patient Behavior/Mood Asleep Document 09/20/21 08:10 KG (Rec: 09/20/21 08:10 KG [email or web address]) Psychiatric Symptoms Assessment Patient Behavior/Mood Asleep Document 09/20/21 09:19 KB (Rec: 09/20/21 09:21 KB [email or web address]) Psychiatric Symptoms Assessment Symptoms/Complaint Feels Depressed Context Recent Drug Abuse,Significant Life Stressor Worsens With Drug Use Associated Psychiatric Symptoms Delusions Associated Symptoms Denies Other Symptoms If Self Harm Admits Thoughts of Self Harm Level of Consciousness Alert,Awake Patient Orientation Name,Age,Birthday,Place, Situation Patient Behavior/Mood Flat Ability to Follow Directions Good Patient Cognition Impaired No Affect Description Flat Patient Appearance Disheveled Hallucination Type None Thought Process: Normal Depressive Symptoms Unhappiness Major Depressive Episode Yes Feelings of Hopelessness Yes Suicidal Ideation Vague Suicide Plan Vague Homicidal Ideation None Nausea/Vomiting None SALES ENABLEMENT SPECIALIST - Linen Sorter Assessment Start: 09/20/21 09:10 Freq: Status: Active Protocol: Document 09/20/21 09:10 BF (Rec: 09/20/21 09:26 BF [id number]) SALES ENABLEMENT SPECIALIST/Linen Sorter Assessment Start date 09/20/21 Visit Start Time 08:30 End date 09/20/21 Visit End Time 09:00 Total time Care Management spent on 60 min patient visit-in minutes Presenting Problem Pt states she is having suicidal thoughts with a plan and wants to end her life Precipitating Event(s) 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 # Psych. Hx Mental Health and Chemical Pt confirms that she uses meth Dependency and sometimes heroin and THC and unclear if she has a hx of OFELIA tx but denies any current mental health or OFELIA services Family Hx of Behavioral Abuse Unknown Psychiatric Hospitalizations (date(s)/ Pt states a few years ago she location) voluntarily went to Inpt MH tx but at the time did not feel it was very helpful but states she is in a different place now and thinks that it could help stabilize her Psychosocial information & Support Pt states she is living in an [facility] RV alone near [place] and her sister Debbie lives nearby in [place] School/Work denies Presenting Problem Pt's UDS is positive for THC, opiates, amphetamines, methamphetamines and pt confirms she is actively using Legal Matters - Outstanding Issues Denies but has a hx of a warrant last year Orientation (Person/Place/Time) Pt appears to be A&O x3 Stated Mood ongoing suicidal thoughts, depressed, tired of feeling like this Affect (Congruent with Mood?) Affect is flat, eyes closed while talking and sometimes mumbling and difficult to understand but does participate in discussion and mask makes it difficult to hear as pt speaks softly Thought Content - Specify/Describe Pt states that she feels she Obsessions, Delusions, Hallucinations has been infested with parasites over the past year and frustrated that medical staff cannot find her parasites and contribute her obsessive thoughts with her drug use. Thought Processes (Idrohqo-Rerfxeuc-Hdbm Disorganized and tangential at Vwxkfwec-Qxdyfnim-Vqbznlxtdu- times. Dykjvyoarvzlcv-Hflgotg-Ctznghoiehnx- Thought Blocking) Speech (Mzmymq-Nbjf-Riyhbca-Rapid-Soft- Soft, sometimes mumbled Loud-Pressured) Motor (Aerpyj-Ypfyoebjg-Tasm-Other) Slow, pt states she is exhausted and is laying down during assessment with eyes closed but calm and cooperative Insight (Fkyw-Secw-Estd/Limited) Poor/limited due to drug abuse Judgement (Fpfy-Rdiq-Tryl/Limited) Poor limited due to drug abuse Impulse Control (Adequate-Impaired) Impaired Memory (Jofrvqmjm-Rlchwq-Lzldgq, somewhat intact Impaired-Intact) Concentration (Intact-Impaired) intact Attention (Intact-Impaired) pt is sleepy and able to participate in discussion but closes eyes Behavior (Appropriate-Inappropriate) appropriate Suicidal Ideation (Plan) Yes: thoughts of carbon monoxide poisoning Homicidal Ideation (Plan) No Intervention SALES ENABLEMENT SPECIALIST met bedside with pt in the ED and pt was drowsy and laying down and looks somewhat disheveled with eyes closed but participates in discussion and is calm and cooperative and does request food and drink. Pt is soft spoken and with her mask on is somewhat difficult to hear at times plus she tends to mumble some but pt does confirm that she is still currently having suicidal ideation with one plan of using a vehicle to by carbon monoxide poisoning. Pt states she has been to Inpt MH tx once a few years ago but denies any current MH or OFELIA services at this time. Pt states that she does not feel that discharging to the community with least restrictive options of outpt services or detox would keep her safe and she is fed up with feeling like this the past year. Pt states that she has been in a really dark place with ongoing thoughts that she has parasites in her skin and hair and recently shaved her head due to thoughts of parasites. Pt has limited community supports and states her sister lives in [place] but pt is living alone and actively using drugs . Pt requesting voluntary Inpt MH tx for stabilization and med management as pt states she is not currently on medications. RA Plan SALES ENABLEMENT SPECIALIST updated RN and MD and all in agreement that pt could benefit from Inpt MH tx for stabilization and med management as pt has a hx of 12 ED visits this year 2020 without having Inpt MH tx set up and pt continues to struggle with her depression, OFELIA, and now new suicidal ideation. SALES ENABLEMENT SPECIALIST will begin attempting to find an available Inpt MH bed for pt prior to safe d/c to the community.
[2021-09-20 10:16] VITALS: BP 125/87; PULSE 78; RESP 16; TEMP 37.2; O2SAT 96
== END 2021-09-20 10:17 | disposition home or self-care (01) ==
PROVIDERS: Emergency Medicine; Emergency Provider Emergency Medicine; PCP Nurse Practitioner Family
DX: R45.851 Suicidal ideations (principal); F15.10 Other stimulant abuse, uncomplicated; N39.0 Urinary tract infection, site not specified; F32.9 Major depressive disorder, single episode, unspecified; Z20.822 Contact with and (suspected) exposure to COVID-19
CPT/HCPCS: 36415; 80053; 80305; 80320; 81003; 81015; 85025; 87077; 87086; 87186; 87635; 99284; C9803

== ENCOUNTER 2022-02-23 03:29 | Emergency (ER) | payer OTHER, MEDICAID, SELFPAY ==
[2022-02-23] VITALS (15 sets, daily range): BP systolic 131–135; BP diastolic 79–84; PULSE 62–87; RESP 24–98; TEMP 36.9; O2SAT 94–100
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
--- NOTE | 2022-02-23 04:06 | DI.US.S_ITS ---
PROCEDURE: US PERIPH VENOUS LOW EXTREM RT INDICATIONS: EDEMA; RECENT RIGHT HIP ORIF TECHNIQUE: Real-time imaging, as well as color and pulse Doppler interrogation, were performed of the lower extremity deep veins from the inguinal ligament to the popliteal fossa. COMPARISON: None. FINDINGS: The common femoral, femoral and popliteal veins are normally compressible, and free of intraluminal thrombus. Color and pulse Doppler demonstrate normal phasic intraluminal flow. There is normal augmentation response to distal compression maneuver. IMPRESSION: No DVT in the right lower extremity. Comment: Final report is concordant with preliminary interpretation by [facility] Dictated by: Ben Fitzgerald M.D. on 02/23/2022 at 8:06 Approved by: Ben Fitzgerald M.D. on 02/23/2022 at 8:06
[2022-02-23 04:16] LABS: Add Manual Diff / Slide Review NO; Basophils Absolute Auto 100 /uL (0-100); Basophils Percent Auto 1.3 % (0-2); Eosinophils Absolute Auto 600 /uL (0-450); Eosinophils Percent Auto 9.8 % (2-4); Hematocrit 28.4 % (36-46); Hemoglobin 9.2 g/dL (12.0-16.0); Lymphocytes Absolute Auto 1200 /uL (1100-4500); Lymphocytes Percent Auto 20.8 % (25-40); Mean Corpuscular HGB Conc 32.4 % (30-36); Mean Corpuscular Hemoglobin 26.1 PG (26-34); Mean Corpuscular Volume 80.4 fL (80-100); Monocytes Absolute Auto 600 /uL (0-900); Neutrophils Absolute Auto 3300 /uL (1500-7000); Neutrophils Percent Auto 58.1 % (50-75); Red Blood Cell Count 3.53 X10^6/uL (4.0-5.2); Red Cell Distribution Width 15.6 % (11.6-14.8); White Blood Cell Count 5.7 X10^3/uL (4.5-11.0)
[2022-02-23 04:19] LABS: Alanine Aminotransferase 58 IU/L (<35); Albumin 4.3 g/dL (3.5-5.0); Albumin Globulin Ratio 1.1 (1.0-2.8); Alkaline Phosphatase 83 U/L (38-126); Aspartate Aminotransferase 45 IU/L (14-36); BUN Creatinine Ratio 30.4 (6-22); Bilirubin Total 0.6 mg/dL (0.2-1.3); Blood Urea Nitrogen 17 mg/dL (7-17); C-Reactive Protein Quant 3.4 mg/dL (<1.0); Calcium 9.2 mg/dL (8.4-10.2); Carbon Dioxide 28 mmol/L (22-32); Chloride 105 mmol/L (98-107); Estimated Glomerular Filt Rate > 60.0 mL/min (>60); Globulin 3.9 g/dL (1.7-4.1); Glucose 95 mg/dL (70-100); HEMOLYSIS 31 (0-50); Potassium 3.5 mmol/L (3.4-5.1); Sodium 143 mmol/L (137-145); Total Protein 8.2 g/dL (6.3-8.2)
[2022-02-23 04:20] LABS: Platelet Count 937 X10^3/uL (150-400)
[2022-02-23 04:35] LABS: Anisocytosis 1+; Platelet Estimate Increased on smear
[2022-02-23 04:41] LABS: Erythrocyte Sedimentation Rate 76 MM/HR (0-20)
[2022-02-23] MEDS: OXYCODONE/ACETAMINOPHEN 5/325 TABLET 1 TAB PO (05:25)
[2022-02-23] MEDS: SODIUM CHLORIDE 0.9% 1,000 ML 150 ML IV (05:25)
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
--- NOTE | 2022-02-23 08:53 | PC.NURSE ---
first contact with patient is discharge with patient. knee brace put on pt prior to getting her oob.
== END 2022-02-23 08:18 | disposition home or self-care (01) ==
PROVIDERS: Emergency Provider Emergency Medicine; PCP Nurse Practitioner Family
DX: M96.842 Postprocedural seroma of a musculoskeletal structure following a musculoskeletal system procedure (principal); S73.03 Other anterior subluxation and dislocation of hip; Z87.09 Personal history of other diseases of the respiratory system; D75.838 Other thrombocytosis; F17.210 Nicotine dependence, cigarettes, uncomplicated; V89.2XXD Person injured in unspecified motor-vehicle accident, traffic, subsequent encounter
CPT/HCPCS: 71045; 74177; 80053; 81003; 85025; 85651; 86140; 93971; 99284; Q9967

== ENCOUNTER 2022-03-06 11:44 | Emergency (ER) | payer OTHER, MEDICAID, SELFPAY ==
[2022-03-06 12:08] VITALS: BP 121/74; PULSE 95; RESP 18; TEMP 36.9; O2SAT 98; BMI 25.7
[2022-03-06 13:49] LABS: Add Manual Diff / Slide Review NO; Basophils Absolute Auto 0 /uL (0-100); Basophils Percent Auto 0.7 % (0-2); Eosinophils Absolute Auto 900 /uL (0-450); Eosinophils Percent Auto 13.5 % (2-4); Hematocrit 28.6 % (36-46); Hemoglobin 9.4 g/dL (12.0-16.0); Lymphocytes Absolute Auto 1500 /uL (1100-4500); Lymphocytes Percent Auto 21.4 % (25-40); Mean Corpuscular HGB Conc 32.9 % (30-36); Mean Corpuscular Hemoglobin 26.2 PG (26-34); Mean Corpuscular Volume 79.7 fL (80-100); Monocytes Absolute Auto 600 /uL (0-900); Monocytes Percent Auto 9.3 % (3-14); Neutrophils Absolute Auto 3800 /uL (1500-7000); Neutrophils Percent Auto 55.1 % (50-75); Platelet Count 369 X10^3/uL (150-400); Red Blood Cell Count 3.59 X10^6/uL (4.0-5.2); Red Cell Distribution Width 14.9 % (11.6-14.8); White Blood Cell Count 6.8 X10^3/uL (4.5-11.0)
[2022-03-06 13:59] LABS: Acetaminophen < 10 ug/mL (10-30); Alanine Aminotransferase 21 IU/L (<35); Albumin Globulin Ratio 1.2 (1.0-2.8); Alkaline Phosphatase 72 U/L (38-126); Aspartate Aminotransferase 24 IU/L (14-36); BUN Creatinine Ratio 27.5 (6-22); Bilirubin Total 0.3 mg/dL (0.2-1.3); Blood Urea Nitrogen 19 mg/dL (7-17); Calcium 9.1 mg/dL (8.4-10.2); Carbon Dioxide 30 mmol/L (22-32); Chloride 103 mmol/L (98-107); Estimated Glomerular Filt Rate > 60 mL/min (>60); Ethanol (ETOH) < 10 mg/dL; Globulin 3.3 g/dL (1.7-4.1); Glucose 93 mg/dL (70-100); HEMOLYSIS < 15 (0-50); Potassium 4.2 mmol/L (3.4-5.1); Salicylate < 1.0 mg/dL (<20); Sodium 139 mmol/L (137-145); Total Protein 7.3 g/dL (6.3-8.2)
[2022-03-06 14:15] LABS: Free T4, Direct Thyroxine 1.03 ng/dL (0.78-2.19)
[2022-03-06 14:25] LABS: COVID19 -Nasal RAPID Negative (Negative)
[2022-03-06 14:25] LABS: Amorphous Sediment Urine 1+; Ictotest Urine Negative (Negative); RBC Urine None Seen (0-5/HPF); Squamous Epithelial Cell Urine 5-10 /HPF (0-5/HPF); WBC Urine 1-5/HPF (0-5/HPF)
[2022-03-06 14:26] LABS: Bacteria Urine Moderate (10-30); Mucus Urine 2+ (Negative)
[2022-03-06 14:29] LABS: Thyroid Stimulating Hormone 2.19 uIU/mL (0.47-4.68)
[2022-03-06 14:29] LABS: Ur Creatinine Normal (Normal); Ur Specific Gravity Normal (Normal); Urine Tetrahydrocannabinol Positive (Negative); Urine pH Normal (Normal)
[2022-03-06 14:30] LABS: UR Morphine/Opiate cutoff 300 Positive (Negative); Urine Amphetamines Positive (Negative); Urine Barbiturates Negative (Negative); Urine Benzodiazepines Negative (Negative); Urine Cocaine Negative (Negative); Urine MDMA Negative (Negative); Urine Methadone Negative (Negative); Urine Methamphetamines Positive (Negative); Urine Oxycodone Positive (Negative); Urine Phencyclidine Negative (Negative); Urine Tricyclic Antidepressant Negative (Negative)
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
[2022-03-06 17:00] VITALS: BP 104/64; PULSE 84; RESP 16; O2SAT 100
[2022-03-06] MEDS: cephALEXin 250 MG CAPSULE 500 MG PO (17:44)
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
--- NOTE | 2022-03-06 19:15 | CM.SWNOTE ---
ED SECTION PLOTTER OPERATOR contacted [facility] who reported no beds available today. ED SECTION PLOTTER OPERATOR attempted to contact [facility]; no answer. Last information provided from another SECTION PLOTTER OPERATOR indicated this facility is not admitting on weekends until March. ED SECTION PLOTTER OPERATOR spoke with [facility] who would screen patient but would not be able to admit, if accepted, until tomorrow. SECTION PLOTTER OPERATOR assisted patient with screening phone call. Patient was declined due to patient reporting she initially presented to ED with SI. SECTION PLOTTER OPERATOR conferred with attending who agreed patient would be able to spend the night in ED setting to help patient sleep and clear from meth intoxication. Patient requested to leave and indicated she was very upset nobody was helping her with the parasite inside her body it isn't a UTI. You all don't believe me. I'm going where I can get help for this. SECTION PLOTTER OPERATOR offered patient assistance with obtaining a ride, contacting a friend. Patient declined stating she would contact a friend for a ride herself and I just want to get outside to smoke. Patient left despite SECTION PLOTTER OPERATOR and assigned nurse offering for patient to remain to receive ongoing help in ED setting. SECTION PLOTTER OPERATOR and attending Neil had earlier conferred and agreed patient is not gravely disabled at this time and does not meet criteria for [facility] status for mh or carlos a. Therefore, patient was allowed to leave ED setting as patient was requesting. Josse FULLER
== END 2022-03-06 19:10 | disposition home or self-care (01) ==
PROVIDERS: Emergency Provider Emergency Medicine; PCP Nurse Practitioner Family
DX: N39.0 Urinary tract infection, site not specified (principal); R45.851 Suicidal ideations; F15.10 Other stimulant abuse, uncomplicated; F17.210 Nicotine dependence, cigarettes, uncomplicated; Z20.822 Contact with and (suspected) exposure to COVID-19
CPT/HCPCS: 36415; 80053; 80305; 80320; 80329; 81003; 81015; 81025; 84439; 84443; 85025; 87086; 87635; 99283; 99284; C9803; G0480

== ENCOUNTER 2022-03-07 08:00 | Emergency (ER) | payer OTHER, MEDICAID, SELFPAY ==
[2022-03-07 08:00] VITALS: BP 140/83; PULSE 80; RESP 18; TEMP 36.7; O2SAT 99
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
[2022-03-07] MEDS: LORazepam 0.5 MG TABLET PO (09:41)
[2022-03-07 09:48] LABS: Add Manual Diff / Slide Review NO; Basophils Absolute Auto 0 /uL (0-100); Basophils Percent Auto 0.6 % (0-2); Eosinophils Absolute Auto 700 /uL (0-450); Eosinophils Percent Auto 13.6 % (2-4); Lymphocytes Absolute Auto 900 /uL (1100-4500); Lymphocytes Percent Auto 17.7 % (25-40); Mean Corpuscular HGB Conc 32.1 % (30-36); Mean Corpuscular Hemoglobin 25.5 PG (26-34); Mean Corpuscular Volume 79.5 fL (80-100); Monocytes Absolute Auto 400 /uL (0-900); Monocytes Percent Auto 7.9 % (3-14); Neutrophils Absolute Auto 3200 /uL (1500-7000); Neutrophils Percent Auto 60.2 % (50-75); Platelet Count 364 X10^3/uL (150-400); Red Cell Distribution Width 15.1 % (11.6-14.8); White Blood Cell Count 5.3 X10^3/uL (4.5-11.0)
[2022-03-07 10:04] LABS: Alanine Aminotransferase 19 IU/L (<35); Albumin 4.1 g/dL (3.5-5.0); Albumin Globulin Ratio 1.2 (1.0-2.8); Alkaline Phosphatase 87 U/L (38-126); Aspartate Aminotransferase 24 IU/L (14-36); BUN Creatinine Ratio 20.3 (6-22); Bilirubin Total 0.3 mg/dL (0.2-1.3); Blood Urea Nitrogen 12 mg/dL (7-17); Calcium 9.4 mg/dL (8.4-10.2); Carbon Dioxide 32 mmol/L (22-32); Chloride 103 mmol/L (98-107); Estimated Glomerular Filt Rate > 60 mL/min (>60); Ethanol (ETOH) < 10 mg/dL; Globulin 3.3 g/dL (1.7-4.1); Glucose 108 mg/dL (70-100); HEMOLYSIS < 15 (0-50); Potassium 3.8 mmol/L (3.4-5.1); Sodium 140 mmol/L (137-145); Total Protein 7.4 g/dL (6.3-8.2)
[2022-03-07 10:09] LABS: Acetaminophen < 10 ug/mL (10-30); Salicylate < 1.0 mg/dL (<20)
[2022-03-07 10:41] LABS: UR Morphine/Opiate cutoff 300 Negative (Negative); Ur Creatinine Normal (Normal); Ur Specific Gravity Normal (Normal); Urine Amphetamines Positive (Negative); Urine Barbiturates Negative (Negative); Urine Benzodiazepines Negative (Negative); Urine Cocaine Negative (Negative); Urine MDMA Negative (Negative); Urine Methadone Negative (Negative); Urine Methamphetamines Positive (Negative); Urine Oxycodone Positive (Negative); Urine Phencyclidine Negative (Negative); Urine Tetrahydrocannabinol Negative (Negative); Urine Tricyclic Antidepressant Negative (Negative); Urine pH Normal (Normal)
--- NOTE | 2022-03-07 11:21 | PC.NURSE ---
Provided pt turkey sandwich, string cheese, gingerale and davi crackers.
--- NOTE | 2022-03-07 11:30 | PC.NURSE ---
0945 resting with eyes closed.
[2022-03-07 11:46] LABS: COVID19 -Nasal RAPID Negative (Negative)
--- NOTE | 2022-03-07 13:30 | PC.NURSE ---
I asked the patient is she was still suicidal and wanted to and she replied No, I just know that things need to change. provider aware.
[2022-03-07 13:50] VITALS: BP 113/82; PULSE 83; O2SAT 97
[2022-03-07 14:00] VITALS: PULSE 89; O2SAT 100
[2022-03-07] MEDS: ACETAMINOPHEN 325 MG TABLET 975 MG PO (14:27)
--- NOTE | 2022-03-07 14:45 | PC.NURSE ---
pt discussing that she wants to go to rehab for meth and heroin. i told her i'd reach out. [facility] said they do have a bed and to fax her chart.
--- NOTE | 2022-03-07 17:18 | PC.NURSE ---
1630 pt crying concerned if she doesn't get [facility] explained that they have their own protocols and it can take some time. pt wiped her eyes and laid back down.
== END 2022-03-07 18:38 | disposition home or self-care (01) ==
PROVIDERS: Emergency Provider Emergency Medicine; PCP Nurse Practitioner Family
DX: F15.10 Other stimulant abuse, uncomplicated (principal); F17.210 Nicotine dependence, cigarettes, uncomplicated; Z20.822 Contact with and (suspected) exposure to COVID-19
CPT/HCPCS: 36415; 80053; 80305; 80320; 80329; 85025; 87635; 99283; 99284; C9803; G0480